=== PATIENT | male | born 1985 | race Caucasian/White ===

== ENCOUNTER 2017-08-24 11:33 | Inpatient (IN) | payer OTHER ==
[2017-08-24 13:29] VITALS: BMI 30.9
--- NOTE | 2017-08-24 14:05 | HP ---
COWS - Scale Resting Pulse: 0= [place] 80 or Below Sweatin= Chills/Flushing Restless Observation: 3= Extraneous Movement Pupil Size: 0= Normal to Room Light Bone or Joint Aches: 2= Severe Diffuse Aches Runny Nose/ Eye Tearin= Runny Nose/Eyes GI Upset > 30mins: 2= Nausea/Diarrhea Tremor Observation: 2= Slight Tremor Visible Yawning Observation: 2= >3x During Session Anxiety or Irritability: 2=Irritable/Anxious Goose Flesh Skin: 0=Smooth Skin COWS Score: 16 CIWA Score - CIWA Score Nausea/Vomitin-Mild Nausea/No Vomiting Muscle Tremors: 4-Moderate,w/Arms Extend Anxiety: 4-Mod. Anxious/Guarded Agitation: 4-Moderately Restless Paroxysmal Sweats: 1-Minimal Palms Moist Orientation: 0-Oriented Tacttile Disturbances: 1-Very Mild Itch/Numbness Auditory Disturbances: 0-None Visual Disturbances: 0-None Headache: 2-Mild CIWA-Ar Total Score: 17 Admission ROS S - HPI Chief Complaint: withdrawal sx Allergies/Adverse Reactions: Allergies Allergy/AdvReac Type Severity Reaction Status Date / Time No Known Allergies Allergy Verified 08/24/17 14:04 History of Present Illness: 31 years old male with long history of opiates xanax dependence has depression and anxiety is admitted to detox Exam Limitations: No Limitations - Ebola screening Have you traveled outside of the country in the last 21 days: No Have you had contact with anyone from an Ebola affected area: No Have you been sick,other than usual withdrawal symptoms: No Do you have a fever: No - Review of Systems Constitutional: Changes in sleep, Weight Stable EENT: reports: No Symptoms Reported Respiratory: reports: No Symptoms reported Cardiac: reports: No Symptoms Reported GI: reports: Diarrhea, Nausea, Poor Fluid Intake, Abdominal cramping : reports: No Symptoms Reported Musculoskeletal: reports: No Symptoms Reported Integumentary: reports: No Symptoms Reported Neuro: reports: Tremors Endocrine: reports: No Symptoms Reported Hematology: reports: No Symptoms Reported Psychiatric: reports: Judgement Intact, Orientated x3, Anxious, Depressed Other Systems: Reviewed and Negative Patient History - Patient Medical History Hx Anemia: No Hx Asthma: No Hx Chronic Obstructive Pulmonary Disease (COPD): No Hx Cancer: No Hx Cardiac Disorders: No Hx Hypertension: No Hx Hypercholesterolemia: No Hx Pacemaker: No HX Cerebrovascular Accident: No Hx Seizures: No Hx Dementia: No Hx Diabetes: No Hx Gastrointestinal Disorders: No Hx Liver Disease: No Hx Genitourinary Disorders: No Hx Sexually Transmitted Disorders: No Hx Renal Disease (ESRD): No Hx Thyroid Disease: No Hx Human Immunodeficiency Virus (HIV): No (NEGATIVE HX) Hx Hepatitis C: No Hx Depression: Yes Hx Suicide Attempt: No Hx Bipolar Disorder: No Hx Schizophrenia: No - Patient Surgical History Past Surgical History: No Hx Neurologic Surgery: No Hx Cataract Extraction: No Hx Cardiac Surgery: No Hx Lung Surgery: No Hx Breast Surgery: No Hx Breast Biopsy: No Hx Abdominal Surgery: No Hx Appendectomy: No Hx Cholecystectomy: No Hx Genitourinary Surgery: No Hx Orthopedic Surgery: No - PPD History Previous Implant?: Yes Documented Results: Negative w/proof Implanted On Prior R Admission?: Yes Date: 08/17/16 Results: 0 MM PPD to be Administered?: Yes - Smoking Cessation Smoking history: Former smoker Have you smoked in the past 12 months: No If you are a former smoker, when did you quit?: 12 MONTHS AGO Cigars Per Day: 0 Hx Chewing Tobacco Use: No Initiated information on smoking cessation: No - Substance & Tx. History Hx Alcohol Use: No Hx Substance Use: Yes Substance Use Type: Opiates, Tranquilizers - Substances Abused Heroin Route: Injection Frequency: Daily Family Disease History - Family Disease History Family History: Unremarkable Admission Physical Exam BHS - Vital Signs Vital Signs: Vital Signs - 24 hr 08/24/17 13:25 Temperature 98.9 F Pulse Rate 63 Respiratory 20 Rate Blood Pressure 115/79 - Physical General Appearance: Yes: Nourished, Appropriately Dressed, Tremorous, Irritable , Sweating, Anxious HEENTM: Yes: Hearing grossly Normal, Normal ENT Inspection, Normocephalic, Normal Voice Respiratory: Yes: Chest Non-Tender, Lungs Clear, Normal Breath Sounds, No Respiratory Distress, No Accessory Muscle Use Neck: Yes: Supple, Trachea in good position Breast: Yes: Breasts Symetrical Cardiology: Yes: Regular Rhythm, S1, S2, Bradycardia Abdominal: Yes: Non Tender, Soft, Increased Bowel Sounds Genitourinary: Yes: Within Normal Limits Back: Yes: Normal Inspection Musculoskeletal: Yes: full range of Motion, Gait Steady Extremities: Yes: Normal Range of Motion, Non-Tender, Tremors Neurological: Yes: Fully Oriented, Alert, Motor Strength 5/5, Normal Response, Depressed Affect Integumentary: Yes: Warm, Track Rodriguez Lymphatic: Yes: Within Normal Limits - Diagnostic (1) Anxiety and depression Current Visit: Yes Status: Suspected (2) HTN (hypertension) Current Visit: Yes Status: Chronic Qualifiers: Hypertension type: essential hypertension Qualified Code(s): I10 - Essential (primary) hypertension (3) Opioid dependence with withdrawal Current Visit: Yes Status: Acute (4) Sedative, hypnotic or anxiolytic dependence with withdrawal, uncomplicated Current Visit: Yes Status: Acute Cleared for Admission [facility] - Detox or Rehab [facility] Level of Care: Medically Managed Detox Regimen/Protocol: Methadone/Valium S Breath Alcohol Content Breath Alcohol Content: 0 Urine Drug Screen - Control Is Test Valid: Yes - Results Drug Screen Negative: No Urine Drug Screen Results: THC-Marijuana, OPI-Opiates, BAR-Barbiturates, BZO- Benzodiazepines, MTD-Methadone, TCA-Tricyclic Antidepress, OXY-Oxycodone
[2017-08-24] MEDS ORDERED: MAGNESIUM CITRATE 300 ML BOTTLE PO PRN (14:24)
[2017-08-24] MEDS ORDERED: MENTHOL/PHENOL 1 EACH UD MM PRN (14:24)
[2017-08-24] MEDS ORDERED: IBUPROFEN 400 MG TABLET (FP) PO PRN (14:24)
[2017-08-24] MEDS ORDERED: MAGNESIUM HYDROX 2400MG/30ML ORAL SUSPENSION 30 ML CUP PO PRN (14:24)
[2017-08-24] MEDS ORDERED: P-EPHED 60MG/TRIPROLIDI 2.5MG TABLET PO PRN (14:24)
[2017-08-24] MEDS ORDERED: guaiFENesin/D-METHORPHAN HB 10 ML UNIT-DOSE CUPS PO PRN (14:24)
[2017-08-24] MEDS ORDERED: LOPERAMIDE HCL 2 MG CAPSULE PO PRN (14:24)
[2017-08-24] MEDS ORDERED: ACETAMINOPHEN 325 MG TABLET (FP) PO PRN (14:24)
[2017-08-24] MEDS ORDERED: diazePAM 5 MG TABLET PO ONE (15:30)
[2017-08-24] MEDS ORDERED: METHADONE HCL 10 MG TABLET (FOR DETOX USE ONLY) PO ONE ×2 (15:35→23:00)
--- NOTE | 2017-08-24 16:57 | CONSULT ---
[facility] Psychiatric Consult - Data Date of interview: 08/24/17 Admission source: [facility] Identifying data: Another admission to [facility] for this 31 [facility] detox treatment on for heroin,marijuana and benzodiazepine (xanax) dependence.Patient is single without children,homeless,unemployed and supported on food stamps. Substance Abuse History: Discussed in this session.Mr Harp admits to continuous use of heroin,xanax and marihuana.Endorses 6-8 years of substance abuse. Details in current [facility] report : Smoking history: Former smoker. Have you smoked in the past 12 months: No. If you are a former smoker, when did you quit?: 12 MONTHS AGO. Cigars Per Day: 0. Hx Chewing Tobacco Use: No. Initiated information on smoking cessation: No. - Substance & Tx. History. Hx Alcohol Use: No. Hx Substance Use: Yes. Substance Use Type: Opiates, Tranquilizers. - Substances Abused. Heroin. Route: Injection. Frequency: Daily Medical History: Patient endorses good general health. Psychiatric History: Patient admits to a history of 2-3 psychiatric hospitalizations in [facility].Diagnosed with MDD and Anxiety Disorder.Mr Harp reports current outpatient psychiatric treatment at [facility] (Dr García) .Treated with prozac 40 mg/day + trazodone 100 mg/hs.Last taken on 08/23/17 as per self-report.Patient agrees to resume these drugs in his current hospital course.Denies history of suicide attempts. Physical/Sexual Abuse/Trauma History: Patient denies. Additional Comment: THC-Marijuana, OPI-Opiates, BAR-Barbiturates, BZO- Benzodiazepines, MTD-Methadone, TCA-Tricyclic Antidepressant, OXY- Oxycodone.Noted. Mental Status Exam - Mental Status Exam Alert and Oriented to: Time, Place, Person Cognitive Function: Good Patient Appearance: Well Groomed Mood: Nervous, Anxious, Hopeful Affect: Mood Congruent Patient Behavior: Fatigued, Appropriate, Cooperative Speech Pattern: Clear (more comfortable in frisian), Appropriate Voice Loudness: Normal Thought Process: Goal Oriented Thought Disorder: Not Present Hallucinations: Denies Suicidal Ideation: Denies Homicidal Ideation: Denies Insight/Judgement: Poor Sleep: Poorly, Difficulty falling asleep Appetite: Good Muscle strength/Tone: Normal Gait/Station: Normal Psychiatric Findings - Problem List ([place] 1, 2,3) (1) Opioid dependence with withdrawal Current Visit: Yes Status: Acute (2) Sedative, hypnotic or anxiolytic dependence with withdrawal, uncomplicated Current Visit: Yes Status: Acute (3) Cannabis dependence, uncomplicated Current Visit: Yes Status: Acute (4) Nicotine dependence Current Visit: Yes Status: Acute Qualifiers: Nicotine product type: cigarettes Substance use status: uncomplicated Qualified Code(s): F17.210 - Nicotine dependence, cigarettes, uncomplicated (5) Drug-induced mood disorder Current Visit: Yes Status: Acute (6) MDD (major depressive disorder) Current Visit: Yes Status: Chronic Comment: As per records and self- report.On medications. (7) Insomnia Current Visit: Yes Status: Acute - Initial Treatment Plan Initial Treatment Plan: Records are reviewed.Psychoeducation.Sleep hygiene.Detoxification in progress.Medications : prozac 40 mg po daily.Trazodone withdrawn until further observation.Pharmacy claims are reviewed.Noted claims for welbutrin XL 300 mg/day (not mentioned by patient) + prozac 40 mg/30 days at [facility] on 08/13/17.Side effects/benefits of prozac are discussed with the patient.He agrees with this careplan.Observation.
[2017-08-24] MEDS: diazePAM 5 MG TABLET PO SCH (22:17)
[2017-08-24] MEDS: THIAMINE HCL 100 MG TABLET (FP) PO SCH (22:17)
[2017-08-25] MEDS: diazePAM 5 MG TABLET PO SCH ×3 (05:51→22:05)
[2017-08-25] MEDS: diazePAM 5 MG TABLET PO PRN ×2 (07:41→17:57)
[2017-08-25] MEDS ORDERED: METHADONE HCL 10 MG TABLET (FOR DETOX USE ONLY) PO SCH (10:00)
[2017-08-25 10:02] LABS: URINE APPEARANCE CLEAR; URINE BILIRUBIN NEGATIVE (NEGATIVE); URINE BLOOD NEGATIVE (NEGATIVE); URINE COLOR YELLOW; URINE GLUCOSE (UA) NEGATIVE (NEGATIVE); URINE KETONE NEGATIVE (NEGATIVE); URINE LEUK ESTERASE NEGATIVE (NEGATIVE); URINE NITRITE NEGATIVE (NEGATIVE); URINE PROTEIN NEGATIVE (NEGATIVE)
[2017-08-25 10:04] LABS: HEMATOCRIT 41.4 % (35.4-49); HEMOGLOBIN 13.7 GM/dL (11.7-16.9); MCHC 33.1 g/dl (32.0-35.9); MEAN CELL VOLUME 87.6 fl (80-96); PLATELET COUNT 257 K/MM3 (134-434); RBC 4.73 M/mm3 (4.00-5.60); RDW 14.6 % (11.9-15.9); WHITE BLOOD COUNT 9.7 K/mm3 (4.0-10.0)
[2017-08-25 10:18] LABS: CHLORIDE 104 mmol/L (98-107); POTASSIUM 4.2 mmol/L (3.5-5.1); SODIUM 140 mmol/L (136-145)
[2017-08-25] MEDS: FLUoxetine HCL 20 MG CAPSULE (FP) PO SCH (10:22)
[2017-08-25] MEDS: PRENATAL VITAMINS W/ FOLIC ACID TABLET (FP) PO SCH (10:22)
[2017-08-25 10:27] LABS: ALBUMIN 4.4 g/dl (3.4-5.0); ALK PHOS 70 U/L (45-117); ANION GAP 10 (8-16); BILIRUBIN,TOTAL 0.7 mg/dL (0.2-1.0); BLOOD UREA NITROGEN 12 mg/dL (7-18); CALCIUM 8.5 mg/dL (8.5-10.1); CO2 26 mmol/L (21-32); GLUCOSE,RANDOM 101 mg/dL (74-106); SGOT/AST 13 U/L (15-37); SGPT/ALT 21 U/L (12-78); TOT PROT 7.7 g/dl (6.4-8.2)
--- NOTE | 2017-08-25 11:26 | PN ---
[facility] CIWA - CIWA Score Nausea/Vomitin-No Nausea/No Vomiting Muscle Tremors: 4-Moderate,w/Arms Extend Anxiety: 4-Mod. Anxious/Guarded Agitation: 4-Moderately Restless Paroxysmal Sweats: 1-Minimal Palms Moist Orientation: 0-Oriented Tacttile Disturbances: 3-Moderate Itch/Numb/Burn Auditory Disturbances: 0-None Visual Disturbances: 0-None Headache: 0-None Present CIWA-Ar Total Score: 16 BHS COWS - Scale Resting Pulse: 0= [place] 80 or Below Sweatin= Chills/Flushing Restless Observation: 3= Extraneous Movement Pupil Size: 0= Normal to Room Light Bone or Joint Aches: 4=Acute Joint/Muscle Pain Runny Nose/ Eye Tearin= Nasal Congestion GI Upset > 30mins: 1= Stomach Cramp Tremor Observation of Outstretched Hands: 2= Slight Tremor Visible Yawning Observation: 1= 1-2x During Session Anxiety or Irritability: 2=Irritable/Anxious Goose Flesh Skin: 0=Smooth Skin COWS Score: 15 S Progress Note (SOAP) Subjective: ANXIETY, SWEATS, IRRITABILITY,INTERMITTENT SLEEP. Objective: 08/25/17 11:25 Vital Signs Temperature 97.4 F L 08/25/17 10:17 Pulse Rate 65 08/25/17 10:17 Respiratory Rate 18 08/25/17 10:17 Blood Pressure 113/70 08/25/17 10:17 O2 Sat by Pulse Oximetry (%) Laboratory Last Values WBC 9.7 K/mm3 (4.0-10.0) 08/25/17 06:00 RBC 4.73 M/mm3 (4.00-5.60) 08/25/17 06:00 Hgb 13.7 GM/dL (11.7-16.9) 08/25/17 06:00 Hct 41.4 % (35.4-49) 08/25/17 06:00 MCV 87.6 fl (80-96) 08/25/17 06:00 MCH 29.0 pg (25.7-33.7) 08/25/17 06:00 MCHC 33.1 g/dl (32.0-35.9) 08/25/17 06:00 RDW 14.6 % (11.9-15.9) 08/25/17 06:00 Plt Count 257 K/MM3 (134-434) 08/25/17 06:00 MPV 10.0 fl (7.5-11.1) D 08/25/17 06:00 Sodium 140 mmol/L (136-145) 08/25/17 06:00 Potassium 4.2 mmol/L (3.5-5.1) 08/25/17 06:00 Chloride 104 mmol/L (98-107) 08/25/17 06:00 Carbon Dioxide 26 mmol/L (21-32) 08/25/17 06:00 Anion Gap 10 (8-16) 08/25/17 06:00 BUN 12 mg/dL (7-18) 08/25/17 06:00 Creatinine 1.0 mg/dL (0.7-1.3) D 08/25/17 06:00 Creat Clearance w eGFR > 60 (>60) 08/25/17 06:00 Random Glucose 101 mg/dL (74-106) D 08/25/17 06:00 Calcium 8.5 mg/dL (8.5-10.1) 08/25/17 06:00 Total Bilirubin 0.7 mg/dL (0.2-1.0) 08/25/17 06:00 AST 13 U/L (15-37) L D 08/25/17 06:00 ALT 21 U/L (12-78) D 08/25/17 06:00 Alkaline Phosphatase 70 U/L (45-117) D 08/25/17 06:00 Total Protein 7.7 g/dl (6.4-8.2) D 08/25/17 06:00 Albumin 4.4 g/dl (3.4-5.0) D 08/25/17 06:00 Urine Color Yellow 08/25/17 08:15 Urine Appearance Clear 08/25/17 08:15 Urine pH 5.0 (5.0-8.0) 08/25/17 08:15 Ur Specific [place] 1.023 (1.001-1.035) 08/25/17 08:15 Urine Protein Negative (NEGATIVE) 08/25/17 08:15 Urine Glucose (UA) Negative (NEGATIVE) 08/25/17 08:15 Urine Ketones Negative (NEGATIVE) 08/25/17 08:15 Urine Blood Negative (NEGATIVE) 08/25/17 08:15 Urine Nitrite Negative (NEGATIVE) 08/25/17 08:15 Urine Bilirubin Negative (NEGATIVE) 08/25/17 08:15 Urine Urobilinogen 2.0 mg/dL (0.2-1.0) 08/25/17 08:15 Ur Leukocyte Esterase Negative (NEGATIVE) 08/25/17 08:15 Assessment: 08/25/17 11:26 WITHDRAWAL SX Plan: CONTINUE DETOX
--- NOTE | 2017-08-25 12:14 | EKG ---
Test Reason : Blood Pressure : / mmHG Vent. Rate : 056 BPM Atrial Rate : 056 BPM P-R Int : 142 ms QRS Dur : 086 ms QT Int : 402 ms P-R-T Axes : 042 059 046 degrees QTc Int : 387 ms SINUS BRADYCARDIA OTHERWISE NORMAL ECG WHEN COMPARED WITH ECG OF 16-AUG-2016 01:14, VENT. RATE HAS DECREASED BY 32 BPM Confirmed by MD JULIETH, JOSE ([id number]) on 08/25/2017 12:14:31 PM Referred By: Confirmed By:JOSE CLANCY MD
[2017-08-25] MEDS ORDERED: CYCLOBENZAPRINE HCL 10 MG TABLET (FP) PO PRN (12:54)
[2017-08-25] MEDS: MAG HYDROX/AL HYDROX/SIMETH 30 ML UNIT-DOSE CUP PO PRN ×2 (13:18→18:54)
[2017-08-25] MEDS: THIAMINE HCL 100 MG TABLET (FP) PO SCH (22:05)
[2017-08-26] MEDS ORDERED: diazePAM 5 MG TABLET PO SCH (10:00)
[2017-08-26] MEDS ORDERED: METHADONE HCL 5 MG TABLET (FOR DETOX USE ONLY) PO SCH (10:00)
[2017-08-26] MEDS: FLUoxetine HCL 20 MG CAPSULE (FP) PO SCH (10:31)
[2017-08-26] MEDS: PRENATAL VITAMINS W/ FOLIC ACID TABLET (FP) PO SCH (10:31)
--- NOTE | 2017-08-26 10:38 | PN ---
Psychiatric Progress Note Vital Signs: Vital Signs Period Temp Pulse Resp BP Sys/Jones Pulse Ox Last 24 Hr 97.1 F-97.8 F 56-63 18-18 99-108/66-71 Date of Session: 08/26/17 Chief Complaint:: " I cannot sleep at night.I need my trazodone." HPI: 31 y/o male,currently undergoing detoxification treatment for heroin,cannabis and benzodiazepine dependence.Uneventful hospital course except for complaint of chronic insomnia. ROS: Unremarkable. Current Medications: Active Medications Generic Name Dose Route Start Last Admin Trade Name Freq PRN Reason Stop Dose Admin Acetaminophen 650 mg 08/24/17 14:24 08/25/17 08:17 Tylenol - PO 650 mg Q4H PRN Administration FEVER Al Hydroxide/Mg Hydroxide 30 ml 08/24/17 14:24 08/25/17 18:54 Mylanta Oral Suspension - PO 30 ml Q6H PRN Administration DYSPEPSIA Cyclobenzaprine HCl 10 mg 08/25/17 12:54 Flexeril - PO TID PRN MUSCLE SPASMS Diazepam 5 mg 08/26/17 10:00 08/26/17 10:31 Valium - PO 08/27/17 22:01 5 mg BID JANA Administration Diazepam 5 mg 08/28/17 10:00 Valium - PO 08/28/17 10:01 DAILY JANA Diazepam 10 mg 08/24/17 14:23 08/25/17 17:57 Valium - PO 08/27/17 14:23 10 mg Q4H PRN Administration WITHDRAWAL(CONT SUBST) Eucalyptus/Menthol/Phenol/Sorbitol 1 each 08/24/17 14:24 Cepastat Lozenge - MM Q4H PRN SORE THROAT Fluoxetine HCl 40 mg 08/25/17 10:00 08/26/17 10:31 Prozac - PO 40 mg DAILY JANA Administration Guaifenesin 10 ml 08/24/17 14:24 Robitussin Dm - PO Q6H PRN COUGH Ibuprofen 400 mg 08/24/17 14:24 08/25/17 17:57 Motrin - PO 400 mg Q6H PRN Administration PAIN LEVEL 4-6 Loperamide HCl 4 mg 08/24/17 14:24 Imodium - PO Q6H PRN DIARRHEA Magnesium Citrate 300 ml 08/24/17 14:24 Citroma - PO Q48H PRN CONSTIPATION Magnesium Hydroxide 30 ml 08/24/17 14:24 Milk Of Magnesia - PO DAILY PRN CONSTIPATION Methadone HCl 10 mg 08/28/17 10:00 Dolophine - PO 08/28/17 10:01 DAILY JANA Methadone HCl 15 mg 08/26/17 10:00 08/26/17 10:31 Dolophine - PO 08/27/17 10:01 15 mg DAILY JANA Administration Methadone HCl 5 mg 08/29/17 06:00 Dolophine - PO 08/29/17 06:01 DAILY@0600 [facility] Multivit/Folic Acid/Iron 1 tab 08/25/17 10:00 08/26/17 10:31 Vitamins (Sjr) - PO 1 tab DAILY JANA Administration Pseudoephedrine/Triprolidine 1 combo 08/24/17 14:24 Actifed - PO TID PRN NASAL CONGESTION Thiamine HCl 100 mg 08/24/17 22:00 08/25/17 22:05 Vitamin B1 - PO 100 mg HS JANA Administration Trazodone HCl 100 mg 08/26/17 22:00 Desyrel - PO HS [facility] Medication(s) Change(s): Trazodone 100 mg po hs.Added to the regimen.Side effects/benefits discussed with patient.Made aware of the risk of priapism and advised to stop taking this medication / seek immediate medical attention if occurrence of erectile phenomena (painful + prolonged erection).Mr Harp endorses trazodone as always well tolerated (several months of utilization) and effective in the management of his sleep difficulties.This is one of his medications prescribed by his OPD care provider.Patient is satisfied with this intervention. Current Side Effect: No Lab tests ordered: No Lab tests reviewed: Yes Provider note:: Asked by LYNDA Torres to address patient's complaint of insomnia and his request for trazodone.Met with patient.Complaint validated.Initial treatment plan revisited.Mr Harp has continued to experience sleep difficulties in spite of observance of sleep hygiene.Treated with trazodone as an outpatient.Confirmed.Hospital course is unremarkable otherwise.Baseline mental status.Trazodone is re-instated in the current regime of care. Total face to face time:: 25 Mental Status Exam - Mental Status Exam Alert and Oriented to: Time, Place, Person Cognitive Function: Good Patient Appearance: Well Groomed Mood: Nervous, Anxious, Hopeful Affect: Appropriate, Normal Range Patient Behavior: Fatigued, Appropriate, Cooperative Speech Pattern: Clear, Appropriate Voice Loudness: Normal Thought Process: Goal Oriented Thought Disorder: Not Present Hallucinations: Denies Suicidal Ideation: Denies Homicidal Ideation: Denies Insight/Judgement: Fair Sleep: Poorly, Difficulty falling asleep Appetite: Good Muscle strength/Tone: Normal Gait/Station: Normal Psychiatric Treatment Plan - Problem List (1) Opioid dependence with withdrawal Current Visit: Yes (2) Sedative, hypnotic or anxiolytic dependence with withdrawal, uncomplicated Current Visit: Yes (3) Cannabis dependence, uncomplicated Current Visit: Yes (4) Nicotine dependence Current Visit: Yes Qualifiers: Nicotine product type: cigarettes Substance use status: in withdrawal Qualified Code(s): F17.213 - Nicotine dependence, cigarettes, with withdrawal (5) Drug-induced mood disorder Current Visit: Yes (6) MDD (major depressive disorder) Current Visit: Yes Comment: As per records and self-report.On medications. (7) Insomnia Current Visit: Yes
[2017-08-26 10:50] VITALS: BP 123/76; PULSE 75; TEMP 98.6
--- NOTE | 2017-08-26 11:58 | PN ---
S CIWA - CIWA Score Nausea/Vomitin-No Nausea/No Vomiting Muscle Tremors: 3 Anxiety: 5 Agitation: 4-Moderately Restless Paroxysmal Sweats: No Perspiration Orientation: 0-Oriented Tacttile Disturbances: 2-Mild Itch/Numbness/Burn Auditory Disturbances: 0-None Visual Disturbances: 2-Mild Sensitivity Headache: 0-None Present CIWA-Ar Total Score: 16 BHS COWS - Scale Resting Pulse: 0= [place] 80 or Below Sweatin= Chills/Flushing Restless Observation: 1= Difficult to Sit Still Pupil Size: 0= Normal to Room Light Bone or Joint Aches: 2= Severe Diffuse Aches Runny Nose/ Eye Tearin= None GI Upset > 30mins: 1= Stomach Cramp Tremor Observation of Outstretched Hands: 2= Slight Tremor Visible Yawning Observation: 1= 1-2x During Session Anxiety or Irritability: 2=Irritable/Anxious Goose Flesh Skin: 3=Piloerection COWS Score: 13 BHS Progress Note (SOAP) Subjective: Stomach Cramping, Anxious, Tremors, Body Aches, Interrupted Sleep. Objective: PATIENT A & O X 3, OBSERVED AMBULATING ON UNIT. NO ACUTE DISTRESS. 08/26/17 11:57 Vital Signs Temperature 98.6 F 08/26/17 10:49 Pulse Rate 75 08/26/17 10:49 Respiratory Rate 18 08/26/17 10:49 Blood Pressure 123/76 08/26/17 10:49 O2 Sat by Pulse Oximetry (%) Laboratory Tests 08/25/17 08/25/17 08/25/17 06:00 06:00 06:00 WBC 9.7 RBC 4.73 Hgb 13.7 Hct 41.4 MCV 87.6 MCH 29.0 MCHC 33.1 RDW 14.6 Plt Count 257 MPV 10.0 D Sodium 140 Potassium 4.2 Chloride 104 Carbon Dioxide 26 Anion Gap 10 BUN 12 Creatinine 1.0 D Creat Clearance w eGFR > 60 Random Glucose 101 D Calcium 8.5 Total Bilirubin 0.7 AST 13 L D ALT 21 D Alkaline Phosphatase 70 D Total Protein 7.7 D Albumin 4.4 D Urine Color Urine Appearance Urine pH Ur Specific [place] Urine Protein Urine Glucose (UA) Urine Ketones Urine Blood Urine Nitrite Urine Bilirubin Urine Urobilinogen Ur Leukocyte Esterase RPR Titer Nonreactive 08/25/17 08:15 WBC RBC Hgb Hct MCV MCH MCHC RDW Plt Count MPV Sodium Potassium Chloride Carbon Dioxide Anion Gap BUN Creatinine Creat Clearance w eGFR Random Glucose Calcium Total Bilirubin AST ALT Alkaline Phosphatase Total Protein Albumin Urine Color Yellow Urine Appearance Clear Urine pH 5.0 Ur Specific [place] 1.023 Urine Protein Negative Urine Glucose (UA) Negative Urine Ketones Negative Urine Blood Negative Urine Nitrite Negative Urine Bilirubin Negative Urine Urobilinogen 2.0 Ur Leukocyte Esterase Negative RPR Titer LABS NOTED. Assessment: 08/26/17 11:57 WITHDRAWAL SYMPTOMS. Plan: CONTINUE DETOX.
--- NOTE | 2017-08-26 11:59 | DS ---
[facility] Detox Discharge Summary Admission Date: 08/24/17 Discharge Date: 08/26/17 - History Present History: Cannabis Dependence, Opioid Dependence, Sedative Dependence Additional Comments: PATIENT DOES NOT WISH TO STAY TO COMPLETE DETOX REGIMEN. RISKS OF LEAVING DETOX UNIT AGAINST MEDICAL ADVICE AND PRIOR TO COMPLETION OF DETOX REGIMEN EXPLAINED TO PATIENT. PATIENT ADVISED TO GO IMMEDIATELY TO NEAREST ER SHOULD ANY INTOLERABLE DETOX SYMPTOMS DEVELOP AT ANY TIME. PATIENT LEFT DETOX UNIT IN STABLE MEDICAL CONDITION. Pertinent Past History: HTN, Depression, Insomnia. - Physical Exam Results Vital Signs: Vital Signs Temperature 98.6 F 08/26/17 10:49 Pulse Rate 75 08/26/17 10:49 Respiratory Rate 18 08/26/17 10:49 Blood Pressure 123/76 08/26/17 10:49 O2 Sat by Pulse Oximetry (%) Pertinent Admission Physical Exam Findings: WITHDRAWAL SYMPTOMS. Laboratory Tests 08/25/17 08/25/17 08/25/17 06:00 06:00 06:00 WBC 9.7 RBC 4.73 Hgb 13.7 Hct 41.4 MCV 87.6 MCH 29.0 MCHC 33.1 RDW 14.6 Plt Count 257 MPV 10.0 D Sodium 140 Potassium 4.2 Chloride 104 Carbon Dioxide 26 Anion Gap 10 BUN 12 Creatinine 1.0 D Creat Clearance w eGFR > 60 Random Glucose 101 D Calcium 8.5 Total Bilirubin 0.7 AST 13 L D ALT 21 D Alkaline Phosphatase 70 D Total Protein 7.7 D Albumin 4.4 D Urine Color Urine Appearance Urine pH Ur Specific [place] Urine Protein Urine Glucose (UA) Urine Ketones Urine Blood Urine Nitrite Urine Bilirubin Urine Urobilinogen Ur Leukocyte Esterase RPR Titer Nonreactive 08/25/17 08:15 WBC RBC Hgb Hct MCV MCH MCHC RDW Plt Count MPV Sodium Potassium Chloride Carbon Dioxide Anion Gap BUN Creatinine Creat Clearance w eGFR Random Glucose Calcium Total Bilirubin AST ALT Alkaline Phosphatase Total Protein Albumin Urine Color Yellow Urine Appearance Clear Urine pH 5.0 Ur Specific [place] 1.023 Urine Protein Negative Urine Glucose (UA) Negative Urine Ketones Negative Urine Blood Negative Urine Nitrite Negative Urine Bilirubin Negative Urine Urobilinogen 2.0 Ur Leukocyte Esterase Negative RPR Titer LABS NOTED. - Treatment Hospital Course: Detoxed Safely - Medication Discharge Medications: Ambulatory Orders Fluoxetine HCl [Prozac -] 40 mg PO DAILY #30 capsule 08/20/16 Trazodone HCl 100 mg PO HS 08/24/17 - Diagnosis (1) Nicotine dependence Current Visit: Yes Status: Acute Qualifiers: Nicotine product type: cigarettes Substance use status: in withdrawal Qualified Code(s): F17.213 - Nicotine dependence, cigarettes, with withdrawal (2) Opioid dependence with withdrawal Current Visit: Yes Status: Acute (3) Sedative, hypnotic or anxiolytic dependence with withdrawal, uncomplicated Current Visit: Yes Status: Acute (4) HTN (hypertension) Current Visit: Yes Status: Chronic Qualifiers: Hypertension type: essential hypertension Qualified Code(s): I10 - Essential (primary) hypertension (5) MDD (major depressive disorder) Current Visit: Yes Status: Chronic Qualifiers: Major depression recurrence: recurrent Active/Remission status: remission status unspecified Qualified Code(s): F33.9 - Major depressive disorder, recurrent, unspecified (6) Cannabis dependence, uncomplicated Current Visit: Yes Status: Acute (7) Drug-induced mood disorder Current Visit: Yes Status: Acute (8) Insomnia Current Visit: Yes Status: Acute Qualifiers: Insomnia type: unspecified Qualified Code(s): G47.00 - Insomnia, unspecified - AMA Did Patient Leave Against Medical Advice: Yes (PATIENT DID NOT WISH TO STAY TO COMPLETE DETOX REGIMEN.)
[2017-08-26] MEDS ORDERED: traZODone HCL 100 MG TABLET (FP) PO SCH (22:00)
[2017-08-28] MEDS ORDERED: METHADONE HCL 10 MG TABLET (FOR DETOX USE ONLY) PO SCH (10:00)
[2017-08-28] MEDS ORDERED: diazePAM 5 MG TABLET PO SCH (10:00)
[2017-08-29] MEDS ORDERED: METHADONE HCL 5 MG TABLET (FOR DETOX USE ONLY) PO SCH (06:00)
== END 2017-08-26 11:30 | disposition left against medical advice (07) | DRG 770 ==
LOC: YASAS 11:33 → Y3N 14:53
PROVIDERS: ADMIT Internal Medicine; ATTEND Internal Medicine
PROC: HZ2ZZZZ Detoxification Services for Substance Abuse Treatment (ICD-10-PCS; principal; 2017-08-24)
DX: F11.23 Opioid dependence with withdrawal (principal); F13.230 Sedative, hypnotic or anxiolytic dependence with withdrawal, uncomplicated; F12.20 Cannabis dependence, uncomplicated; F17.213 Nicotine dependence, cigarettes, with withdrawal; F33.9 Major depressive disorder, recurrent, unspecified; F19.24 Other psychoactive substance dependence with psychoactive substance-induced mood disorder; I10 Essential (primary) hypertension; G47.00 Insomnia, unspecified
CPT/HCPCS: 36415; 80053; 81003; 85027; 86593; 93005; 93010

== ENCOUNTER 2021-06-26 11:55 | Inpatient (IN) | payer OTHER ==
[2021-06-26] MEDS ORDERED: MAGNESIUM CITRATE 300 ML BOTTLE PO PRN (12:43)
[2021-06-26] MEDS ORDERED: BISMUTH SUBSALICYLATE 262 MG/15 ML BTL PO PRN (12:43)
[2021-06-26] MEDS ORDERED: ONDANSETRON *ODT* 4 MG TABLET SL PRN (12:43)
[2021-06-26] MEDS ORDERED: MAG HYDROX/AL HYDROX/SIMETH 30 ML UNIT-DOSE CUP PO PRN (12:43)
[2021-06-26] MEDS ORDERED: IBUPROFEN 400 MG TABLET (FP) PO PRN (12:43)
[2021-06-26] MEDS ORDERED: ACETAMINOPHEN 325 MG TABLET (FP) PO PRN ×2 (12:43)
[2021-06-26] MEDS ORDERED: MAGNESIUM HYDROX 2400MG/30ML ORAL SUSPENSION 30 ML CUP PO PRN (12:43)
[2021-06-26] MEDS ORDERED: MENTHOL/PHENOL 1 EACH UD MM PRN (12:43)
[2021-06-26 13:53] VITALS: BMI 27.6
[2021-06-26 15:22] LABS: CALCIUM 8.7 mg/dL (8.5-10.1)
[2021-06-26 15:23] LABS: ALBUMIN 3.9 g/dl (3.4-5.0); BLOOD UREA NITROGEN 20.8 mg/dL (7-18)
[2021-06-26 15:23] LABS: HEMATOCRIT 38.9 % (35.4-49); MCH 29.2 pg (25.7-33.7); MCHC 33.4 g/dl (32.0-35.9); MEAN CELL VOLUME 87.6 fl (80-96); MEAN PLT VOLUME 8.9 fl (7.5-11.1); PLATELET COUNT 263 10^3/uL (134-434); RBC 4.45 M/mm3 (4.00-5.60); RDW 13.6 % (11.9-15.9); WHITE BLOOD COUNT 7.6 K/mm3 (4.0-10.0)
[2021-06-26 15:26] LABS: CREATININE 0.9 mg/dL (0.55-1.3)
[2021-06-26 15:27] LABS: BILIRUBIN,TOTAL 0.9 mg/dL (0.2-1)
[2021-06-26 15:28] LABS: TOT PROT 7.1 g/dl (6.4-8.2)
[2021-06-26] MEDS: hydrOXYzine PAMOATE 25 MG CAPSULE (FP) PO SCH ×3 (18:14→22:39)
[2021-06-26] MEDS: diazePAM 5 MG TABLET PO SCH ×2 (18:14→22:38)
[2021-06-26] MEDS: PRENATAL VITAMINS W/ FOLIC ACID TABLET (FP) PO SCH (18:14)
[2021-06-26] MEDS: MELATONIN 5 MG TABLETS PO SCH (22:39)
[2021-06-26] MEDS: THIAMINE HCL 100 MG TABLET (FP) PO SCH (22:39)
[2021-06-27] MEDS: diazePAM 5 MG TABLET PO SCH ×4 (08:03→22:22)
[2021-06-27] MEDS: hydrOXYzine PAMOATE 25 MG CAPSULE (FP) PO SCH ×5 (08:03→22:22)
[2021-06-27] MEDS: METHOCARBAMOL 500 MG TABLET PO PRN (10:20)
[2021-06-27] MEDS: PRENATAL VITAMINS W/ FOLIC ACID TABLET (FP) PO SCH (10:21)
[2021-06-27] MEDS ORDERED: methaDONE HCL 10 MG TABLET PO ONE (13:01)
[2021-06-27] MEDS ORDERED: methaDONE HCL 10 MG TABLET ONE (13:22)
[2021-06-27] MEDS ORDERED: methaDONE HCL 40 MG DISPERSABLE TABLET ONE (13:23)
[2021-06-27 17:18] LABS: HIV INTERPRETATION NEGATIVE (NEGATIVE)
[2021-06-27] MEDS: THIAMINE HCL 100 MG TABLET (FP) PO SCH (22:22)
[2021-06-27] MEDS: MELATONIN 5 MG TABLETS PO SCH (22:22)
[2021-06-28] MEDS ORDERED: methaDONE HCL 10 MG TABLET ONE (04:55)
[2021-06-28] MEDS ORDERED: methaDONE HCL 40 MG DISPERSABLE TABLET ONE (04:55)
[2021-06-28] MEDS ORDERED: methaDONE HCL 10 MG TABLET PO SCH (06:00)
[2021-06-28] MEDS: hydrOXYzine PAMOATE 25 MG CAPSULE (FP) PO SCH ×5 (06:37→22:12)
[2021-06-28] MEDS: diazePAM 5 MG TABLET PO SCH ×3 (06:37→22:13)
[2021-06-28] MEDS: METHOCARBAMOL 500 MG TABLET PO PRN (10:28)
[2021-06-28] MEDS: PRENATAL VITAMINS W/ FOLIC ACID TABLET (FP) PO SCH (10:28)
[2021-06-28] MEDS: diazePAM 5 MG TABLET PO PRN ×2 (10:28→19:01)
[2021-06-28] MEDS: MELATONIN 5 MG TABLETS PO SCH (22:12)
[2021-06-28] MEDS: THIAMINE HCL 100 MG TABLET (FP) PO SCH (22:12)
[2021-06-29] MEDS ORDERED: methaDONE HCL 10 MG TABLET ONE (05:43)
[2021-06-29] MEDS ORDERED: methaDONE HCL 40 MG DISPERSABLE TABLET ONE (05:44)
[2021-06-29] MEDS: diazePAM 5 MG TABLET PO SCH ×2 (06:33→17:40)
[2021-06-29] MEDS: hydrOXYzine PAMOATE 25 MG CAPSULE (FP) PO SCH ×5 (06:34→22:31)
[2021-06-29] MEDS: PRENATAL VITAMINS W/ FOLIC ACID TABLET (FP) PO SCH (10:34)
[2021-06-29] MEDS: diazePAM 5 MG TABLET PO PRN (10:35)
[2021-06-29] MEDS: METHOCARBAMOL 500 MG TABLET PO PRN (10:35)
[2021-06-29] MEDS: THIAMINE HCL 100 MG TABLET (FP) PO SCH (22:31)
[2021-06-29] MEDS: MELATONIN 5 MG TABLETS PO SCH (22:31)
[2021-06-30] MEDS ORDERED: methaDONE HCL 10 MG TABLET ONE (04:28)
[2021-06-30] MEDS ORDERED: methaDONE HCL 40 MG DISPERSABLE TABLET ONE (04:28)
[2021-06-30] MEDS ORDERED: diazePAM 5 MG TABLET PO ONE (06:00)
[2021-06-30] MEDS: hydrOXYzine PAMOATE 25 MG CAPSULE (FP) PO SCH ×5 (06:33→22:10)
[2021-06-30] MEDS: PRENATAL VITAMINS W/ FOLIC ACID TABLET (FP) PO SCH (10:32)
[2021-06-30] MEDS: MELATONIN 5 MG TABLETS PO SCH (22:10)
[2021-06-30] MEDS: THIAMINE HCL 100 MG TABLET (FP) PO SCH (22:10)
[2021-07-01] MEDS ORDERED: methaDONE HCL 40 MG DISPERSABLE TABLET ONE (04:00)
[2021-07-01] MEDS ORDERED: methaDONE HCL 10 MG TABLET ONE (04:00)
[2021-07-01] MEDS: hydrOXYzine PAMOATE 25 MG CAPSULE (FP) PO SCH ×5 (06:47→22:00)
[2021-07-01] MEDS: PRENATAL VITAMINS W/ FOLIC ACID TABLET (FP) PO SCH (09:59)
[2021-07-01] MEDS: METHOCARBAMOL 500 MG TABLET PO PRN (17:41)
[2021-07-01] MEDS: THIAMINE HCL 100 MG TABLET (FP) PO SCH (22:00)
[2021-07-01] MEDS: MELATONIN 5 MG TABLETS PO SCH (22:01)
[2021-07-02] MEDS ORDERED: methaDONE HCL 10 MG TABLET ONE (04:12)
[2021-07-02] MEDS ORDERED: methaDONE HCL 40 MG DISPERSABLE TABLET ONE (04:12)
[2021-07-02] MEDS: hydrOXYzine PAMOATE 25 MG CAPSULE (FP) PO SCH ×2 (06:31→10:38)
[2021-07-02] MEDS: PRENATAL VITAMINS W/ FOLIC ACID TABLET (FP) PO SCH (10:38)
[2021-07-02] MEDS: THIAMINE HCL 100 MG TABLET (FP) PO SCH (22:09)
[2021-07-02] MEDS: MELATONIN 5 MG TABLETS PO SCH (22:09)
[2021-07-03] MEDS ORDERED: methaDONE HCL 10 MG TABLET ONE (04:17)
[2021-07-03] MEDS ORDERED: methaDONE HCL 40 MG DISPERSABLE TABLET ONE (04:17)
[2021-07-03] MEDS: PRENATAL VITAMINS W/ FOLIC ACID TABLET (FP) PO SCH (10:20)
[2021-07-03] MEDS: MELATONIN 5 MG TABLETS PO SCH (22:22)
[2021-07-03] MEDS: THIAMINE HCL 100 MG TABLET (FP) PO SCH (22:23)
[2021-07-04] MEDS ORDERED: methaDONE HCL 10 MG TABLET ONE (04:17)
[2021-07-04] MEDS ORDERED: methaDONE HCL 40 MG DISPERSABLE TABLET ONE (04:17)
[2021-07-04] MEDS: PRENATAL VITAMINS W/ FOLIC ACID TABLET (FP) PO SCH (11:22)
[2021-07-04 17:11] VITALS: BP 131/84; PULSE 69; TEMP 97.1
== END 2021-07-04 19:20 | disposition home or self-care (01) | DRG 773 ==
LOC: YASAS 11:55 → Y6N 15:56
PROVIDERS: ADMIT Allergy & Immunology; ATTEND Allergy & Immunology
PROC: HZ2ZZZZ Detoxification Services for Substance Abuse Treatment (ICD-10-PCS; principal; 2021-06-26)
DX: F11.23 Opioid dependence with withdrawal (principal); F13.230 Sedative, hypnotic or anxiolytic dependence with withdrawal, uncomplicated; F12.20 Cannabis dependence, uncomplicated; F19.24 Other psychoactive substance dependence with psychoactive substance-induced mood disorder; U07.1 COVID-19; G47.00 Insomnia, unspecified; Z87.891 Personal history of nicotine dependence; Z56.0 Unemployment, unspecified; Z59.00 Homelessness unspecified
CPT/HCPCS: 36415; 80053; 82962; 85027; 86780; 87389; C9803; U0003; U0005

== ENCOUNTER 2021-08-09 17:41 | Inpatient (IN) | payer OTHER ==
[2021-08-09 19:11] VITALS: BMI 26.1
[2021-08-09] MEDS ORDERED: BISMUTH SUBSALICYLATE 524 MG/30 ML PO PRN (22:42)
[2021-08-09] MEDS ORDERED: MAGNESIUM CITRATE 300 ML BOTTLE PO PRN (22:42)
[2021-08-09] MEDS ORDERED: MAGNESIUM HYDROX 2400MG/30ML ORAL SUSPENSION 30 ML CUP PO PRN (22:42)
[2021-08-09] MEDS ORDERED: LOPERAMIDE HCL 2 MG CAPSULE PO PRN (22:42)
[2021-08-09] MEDS ORDERED: ACETAMINOPHEN 325 MG TABLET (FP) PO PRN ×2 (22:42)
[2021-08-09] MEDS ORDERED: ONDANSETRON *ODT* 4 MG TABLET SL PRN (22:42)
[2021-08-09] MEDS ORDERED: IBUPROFEN 400 MG TABLET (FP) PO PRN (22:42)
[2021-08-09] MEDS ORDERED: MENTHOL/PHENOL 1 EACH UD MM PRN (22:42)
[2021-08-09] MEDS ORDERED: MAG HYDROX/AL HYDROX/SIMETH 30 ML UNIT-DOSE CUP PO PRN (22:42)
[2021-08-10] MEDS ORDERED: diazePAM 5 MG TABLET ONE (00:23)
[2021-08-10] MEDS: diazePAM 5 MG TABLET PO SCH ×5 (00:26→22:31)
[2021-08-10] MEDS: PRENATAL VITAMINS W/ FOLIC ACID TABLET (FP) PO SCH (10:18)
[2021-08-10] MEDS: METHOCARBAMOL 500 MG TABLET PO PRN ×2 (10:19→22:32)
[2021-08-10] MEDS: FLUoxetine HCL 10 MG CAPSULE PO SCH (11:36)
[2021-08-10] MEDS ORDERED: FLU VACC QS2021-22(6MOS UP)/PF 60 MCG/0.5 ML SYRINGE IM ONE (13:00)
[2021-08-10] MEDS: methaDONE HCL 10 MG TABLET PO SCH (13:21)
[2021-08-10] MEDS ORDERED: MELATONIN 5 MG TABLETS PO SCH (22:00)
[2021-08-10] MEDS: risperiDONE 2 MG TABLET PO SCH (22:28)
[2021-08-10] MEDS: THIAMINE HCL 100 MG TABLET (FP) PO SCH (22:32)
[2021-08-11] MEDS: methaDONE HCL 10 MG TABLET PO SCH (06:50)
[2021-08-11] MEDS: diazePAM 5 MG TABLET PO SCH ×3 (06:50→22:08)
[2021-08-11] MEDS: METHOCARBAMOL 500 MG TABLET PO PRN (07:06)
[2021-08-11] MEDS: FLUoxetine HCL 10 MG CAPSULE PO SCH (10:11)
[2021-08-11] MEDS: PRENATAL VITAMINS W/ FOLIC ACID TABLET (FP) PO SCH (10:11)
[2021-08-11] MEDS: diazePAM 5 MG TABLET PO PRN ×2 (10:12→20:31)
[2021-08-11 12:38] LABS: HEMATOCRIT 41.7 % (35.4-49); HEMOGLOBIN 13.7 GM/dL (11.7-16.9); MCH 28.8 pg (25.7-33.7); MEAN CELL VOLUME 87.5 fl (80-96); MEAN PLT VOLUME 9.2 fl (7.5-11.1); PLATELET COUNT 201 10^3/uL (134-434); RBC 4.76 M/mm3 (4.00-5.60); RDW 13.2 % (11.9-15.9); WHITE BLOOD COUNT 6.2 K/mm3 (4.0-10.0)
[2021-08-11 12:48] LABS: CALCIUM 9.7 mg/dL (8.5-10.1)
[2021-08-11 12:49] LABS: BLOOD UREA NITROGEN 19.5 mg/dL (7-18)
[2021-08-11 12:51] LABS: CREATININE 0.8 mg/dL (0.55-1.3)
[2021-08-11 12:53] LABS: BILIRUBIN,TOTAL 0.6 mg/dL (0.2-1); TOT PROT 7.4 g/dl (6.4-8.2)
[2021-08-11 14:06] LABS: SARS-CoV-2 NAA Not Detected (Not Detected)
[2021-08-11] MEDS: THIAMINE HCL 100 MG TABLET (FP) PO SCH (22:09)
[2021-08-11] MEDS: risperiDONE 2 MG TABLET PO SCH (22:09)
[2021-08-12] MEDS: diazePAM 5 MG TABLET PO SCH ×2 (06:51→17:36)
[2021-08-12] MEDS: PRENATAL VITAMINS W/ FOLIC ACID TABLET (FP) PO SCH (10:17)
[2021-08-12] MEDS: FLUoxetine HCL 10 MG CAPSULE PO SCH (10:17)
[2021-08-12] MEDS: METHOCARBAMOL 500 MG TABLET PO PRN ×2 (12:40→18:30)
[2021-08-12] MEDS ORDERED: methaDONE HCL 40 MG DISPERSABLE TABLET PO ONE (13:03)
[2021-08-12 17:16] LABS: HIV INTERPRETATION NEGATIVE (NEGATIVE)
[2021-08-12] MEDS: diazePAM 5 MG TABLET PO PRN (20:04)
[2021-08-12] MEDS: THIAMINE HCL 100 MG TABLET (FP) PO SCH (22:05)
[2021-08-12] MEDS: risperiDONE 2 MG TABLET PO SCH (22:06)
[2021-08-13] MEDS ORDERED: methaDONE HCL 10 MG TABLET ONE (04:00)
[2021-08-13] MEDS ORDERED: methaDONE HCL 40 MG DISPERSABLE TABLET ONE (04:01)
[2021-08-13] MEDS ORDERED: diazePAM 5 MG TABLET PO ONE (06:00)
[2021-08-13] MEDS ORDERED: methaDONE 40 MG, methaDONE 10 MG PO SCH (06:00)
[2021-08-13] MEDS ORDERED: methaDONE HCL 10 MG TABLET PO SCH (06:00)
[2021-08-13 09:08] VITALS: BP 126/82; PULSE 94; TEMP 97.3
== END 2021-08-13 09:12 | disposition home or self-care (01) | DRG 773 ==
LOC: YASAS 17:41 → Y3N 23:32
PROVIDERS: ADMIT Allergy & Immunology; ATTEND Allergy & Immunology
PROC: HZ2ZZZZ Detoxification Services for Substance Abuse Treatment (ICD-10-PCS; principal; 2021-08-09)
DX: F13.230 Sedative, hypnotic or anxiolytic dependence with withdrawal, uncomplicated (principal); F11.20 Opioid dependence, uncomplicated; F12.20 Cannabis dependence, uncomplicated; F17.210 Nicotine dependence, cigarettes, uncomplicated; F19.24 Other psychoactive substance dependence with psychoactive substance-induced mood disorder; F32.A Depression, unspecified; F41.9 Anxiety disorder, unspecified; G47.00 Insomnia, unspecified; R79.89 Other specified abnormal findings of blood chemistry; Z56.0 Unemployment, unspecified; Z59.00 Homelessness unspecified
CPT/HCPCS: 36415; 80053; 85027; 86780; 87389; 87811; 90686; 93005; 93010; C9803-CS; G0008; U0003; U0005

== ENCOUNTER 2021-09-05 16:48 | Inpatient (IN) | payer OTHER ==
[2021-09-05 19:21] VITALS: BMI 24.8
[2021-09-05] MEDS ORDERED: guaiFENesin 200 MG/10 ML 10 ML UNIT-DOSE CUPS PO PRN (20:29)
[2021-09-05] MEDS ORDERED: NALOXONE HCL 0.4 MG/ML VIAL IM PRN (20:29)
[2021-09-05] MEDS ORDERED: MAGNESIUM CITRATE 300 ML BOTTLE PO PRN (20:29)
[2021-09-05] MEDS ORDERED: PROCHLORPERAZINE MALEATE 5 MG TABLET PO PRN (20:29)
[2021-09-05] MEDS ORDERED: MAGNESIUM HYDROX 2400MG/30ML ORAL SUSPENSION 30 ML CUP PO PRN (20:29)
[2021-09-05] MEDS ORDERED: METHOCARBAMOL 500 MG TABLET PO PRN (20:29)
[2021-09-05] MEDS ORDERED: P-EPHED 60MG/TRIPROLIDI 2.5MG TABLET PO PRN (20:29)
[2021-09-05] MEDS ORDERED: ACETAMINOPHEN 325 MG TABLET (FP) PO PRN ×2 (20:29)
[2021-09-05] MEDS ORDERED: LOPERAMIDE HCL 2 MG CAPSULE PO PRN (20:29)
[2021-09-05] MEDS ORDERED: BISMUTH SUBSALICYLATE 524 MG/30 ML PO PRN (20:29)
[2021-09-05] MEDS ORDERED: MENTHOL/PHENOL 1 EACH UD MM PRN (20:29)
[2021-09-05] MEDS ORDERED: DICYCLOMINE HCL 10 MG CAPSULE PO PRN (20:29)
[2021-09-05] MEDS ORDERED: MAG HYDROX/AL HYDROX/SIMETH 30 ML UNIT-DOSE CUP PO PRN (20:29)
[2021-09-05] MEDS ORDERED: NICOTINE POLACRILEX 2 MG GUM BUC PRN (20:29)
[2021-09-06] MEDS: THIAMINE HCL 100 MG TABLET (FP) PO SCH ×2 (03:08→22:46)
[2021-09-06] MEDS: MELATONIN 5 MG TABLETS PO SCH ×2 (03:08→22:46)
[2021-09-06] MEDS ORDERED: methaDONE HCL 10 MG TABLET (FOR DETOX USE ONLY) PO ONE (09:15)
[2021-09-06] MEDS ORDERED: cloNIDine HCL 0.1 MG TABLET PO PRN (09:15)
[2021-09-06] MEDS ORDERED: methaDONE HCL 10 MG TABLET PO SCH (10:00)
[2021-09-06] MEDS ORDERED: methaDONE HCL 40 MG DISPERSABLE TABLET ONE (11:40)
[2021-09-06] MEDS ORDERED: methaDONE HCL 10 MG TABLET ONE (11:40)
[2021-09-06 12:09] LABS: HEMOGLOBIN 12.9 GM/dL (11.7-16.9); MCH 29.1 pg (25.7-33.7); MEAN CELL VOLUME 85.7 fl (80-96); MEAN PLT VOLUME 7.9 fl (7.5-11.1); PLATELET COUNT 246 10^3/uL (134-434); RBC 4.43 M/mm3 (4.00-5.60); RDW 13.5 % (11.9-15.9); WHITE BLOOD COUNT 9.3 K/mm3 (4.0-10.0)
[2021-09-06 12:15] LABS: ALBUMIN 3.3 g/dl (3.4-5.0); BLOOD UREA NITROGEN 16.2 mg/dL (7-18)
[2021-09-06 12:17] LABS: BILIRUBIN,TOTAL 0.3 mg/dL (0.2-1)
[2021-09-06 12:19] LABS: TOT PROT 6.7 g/dl (6.4-8.2)
[2021-09-06] MEDS: NICOTINE 14 MG/24 HOURS TOPICAL PATCH TD SCH (12:35)
[2021-09-06] MEDS: PRENATAL VITAMINS W/ FOLIC ACID TABLET (FP) PO SCH (12:36)
[2021-09-06] MEDS: diazePAM 5 MG TABLET PO SCH ×3 (12:36→22:47)
[2021-09-06] MEDS: FLUoxetine HCL 20 MG CAPSULE PO SCH (14:24)
[2021-09-06] MEDS: diazePAM 5 MG TABLET PO PRN (14:25)
[2021-09-06] MEDS: traZODone HCL 100 MG TABLET (FP) PO SCH (22:46)
[2021-09-06] MEDS: risperiDONE 2 MG TABLET PO SCH (22:46)
[2021-09-07] MEDS ORDERED: methaDONE HCL 40 MG DISPERSABLE TABLET ONE (04:03)
[2021-09-07] MEDS ORDERED: methaDONE HCL 10 MG TABLET ONE (04:03)
[2021-09-07] MEDS: diazePAM 5 MG TABLET PO SCH ×4 (05:31→22:16)
[2021-09-07] MEDS: PRENATAL VITAMINS W/ FOLIC ACID TABLET (FP) PO SCH (10:11)
[2021-09-07] MEDS: NICOTINE 14 MG/24 HOURS TOPICAL PATCH TD SCH (10:11)
[2021-09-07] MEDS: FLUoxetine HCL 20 MG CAPSULE PO SCH (10:12)
[2021-09-07] MEDS: IBUPROFEN 400 MG TABLET (FP) PO PRN ×2 (11:48→22:17)
[2021-09-07] MEDS: diazePAM 5 MG TABLET PO PRN (14:28)
[2021-09-07] MEDS: BENZOCAINE 20 % GEL TUBE MM PRN (21:30)
[2021-09-07] MEDS: risperiDONE 2 MG TABLET PO SCH (22:15)
[2021-09-07] MEDS: THIAMINE HCL 100 MG TABLET (FP) PO SCH (22:15)
[2021-09-07] MEDS: traZODone HCL 100 MG TABLET (FP) PO SCH ×2 (22:15→22:47)
[2021-09-07] MEDS: MELATONIN 5 MG TABLETS PO SCH (22:16)
[2021-09-08] MEDS ORDERED: methaDONE HCL 40 MG DISPERSABLE TABLET ONE (04:39)
[2021-09-08] MEDS ORDERED: methaDONE HCL 10 MG TABLET ONE (04:39)
[2021-09-08] MEDS: diazePAM 5 MG TABLET PO SCH ×3 (05:18→22:03)
[2021-09-08] MEDS: BENZOCAINE 20 % GEL TUBE MM PRN (05:41)
[2021-09-08] MEDS: IBUPROFEN 400 MG TABLET (FP) PO PRN ×2 (05:42→22:12)
[2021-09-08] MEDS ORDERED: methaDONE HCL 10 MG TABLET (FOR DETOX USE ONLY) PO ONE (10:00)
[2021-09-08 10:06] LABS: SARS-CoV-2 NAA Not Detected (Not Detected)
[2021-09-08] MEDS: FLUoxetine HCL 20 MG CAPSULE PO SCH (10:26)
[2021-09-08] MEDS: NICOTINE 14 MG/24 HOURS TOPICAL PATCH TD SCH (10:26)
[2021-09-08] MEDS: PRENATAL VITAMINS W/ FOLIC ACID TABLET (FP) PO SCH (10:26)
[2021-09-08 11:59] LABS: SGOT/AST 48 U/L (15-37)
[2021-09-08 12:00] LABS: SGPT/ALT 65 U/L (13-61)
[2021-09-08] MEDS: risperiDONE 2 MG TABLET PO SCH (22:02)
[2021-09-08] MEDS: THIAMINE HCL 100 MG TABLET (FP) PO SCH (22:02)
[2021-09-08] MEDS: traZODone HCL 100 MG TABLET (FP) PO SCH (22:02)
[2021-09-08] MEDS: MELATONIN 5 MG TABLETS PO SCH (22:03)
[2021-09-09] MEDS ORDERED: methaDONE HCL 10 MG TABLET ONE (04:14)
[2021-09-09] MEDS ORDERED: methaDONE HCL 40 MG DISPERSABLE TABLET ONE (04:15)
[2021-09-09] MEDS ORDERED: diazePAM 5 MG TABLET PO SCH (06:00)
[2021-09-09] MEDS: IBUPROFEN 400 MG TABLET (FP) PO PRN (06:21)
[2021-09-09] MEDS: BENZOCAINE 20 % GEL TUBE MM PRN (06:22)
[2021-09-09 09:49] VITALS: BP 102/59; PULSE 73; TEMP 97.4
[2021-09-10] MEDS ORDERED: diazePAM 5 MG TABLET PO ONE (06:00)
[2021-09-10] MEDS ORDERED: methaDONE HCL 10 MG TABLET (FOR DETOX USE ONLY) PO ONE (10:00)
== END 2021-09-09 09:37 | disposition home or self-care (01) | DRG 773 ==
LOC: YASAS 16:48 → Y6N 09-06 12:38
PROVIDERS: ADMIT Allergy & Immunology; ATTEND Allergy & Immunology
PROC: HZ2ZZZZ Detoxification Services for Substance Abuse Treatment (ICD-10-PCS; principal; 2021-09-06)
DX: F13.230 Sedative, hypnotic or anxiolytic dependence with withdrawal, uncomplicated (principal); F11.20 Opioid dependence, uncomplicated; F12.20 Cannabis dependence, uncomplicated; F17.210 Nicotine dependence, cigarettes, uncomplicated; F25.1 Schizoaffective disorder, depressive type; K08.89 Other specified disorders of teeth and supporting structures; R74.01 Elevation of levels of liver transaminase levels; Z59.00 Homelessness unspecified
CPT/HCPCS: 36415; 80053; 84450; 84460; 85027; 86780; 87811; C9803-CS; U0003; U0005

== ENCOUNTER 2021-11-18 13:35 | Inpatient (IN) | payer OTHER ==
[2021-11-18 14:18] VITALS: BMI 26.6
[2021-11-18] MEDS ORDERED: ONDANSETRON *ODT* 4 MG TABLET SL PRN (18:06)
[2021-11-18] MEDS ORDERED: MAGNESIUM HYDROX 2400MG/30ML ORAL SUSPENSION 30 ML CUP PO PRN (18:06)
[2021-11-18] MEDS ORDERED: MAGNESIUM CITRATE 300 ML BOTTLE PO PRN (18:06)
[2021-11-18] MEDS ORDERED: BISMUTH SUBSALICYLATE 524 MG/30 ML PO PRN (18:06)
[2021-11-18] MEDS ORDERED: LOPERAMIDE HCL 2 MG CAPSULE PO PRN (18:06)
[2021-11-18] MEDS ORDERED: IBUPROFEN 600 MG TABLET (FP) PO PRN (18:06)
[2021-11-18] MEDS ORDERED: ACETAMINOPHEN 325 MG TABLET (FP) PO PRN ×2 (18:06)
[2021-11-18] MEDS ORDERED: BENZOCAINE/MENTHOL (CHLORASEPTIC ) LOZENGE MM PRN (18:06)
[2021-11-18] MEDS ORDERED: P-EPHED 60MG/TRIPROLIDI 2.5MG TABLET PO PRN (18:06)
[2021-11-18] MEDS ORDERED: DICYCLOMINE HCL 10 MG CAPSULE PO PRN (18:06)
[2021-11-18] MEDS ORDERED: IBUPROFEN 400 MG TABLET (FP) PO PRN (18:06)
[2021-11-18] MEDS ORDERED: METHOCARBAMOL 500 MG TABLET PO PRN (18:06)
[2021-11-19] MEDS: diazePAM 5 MG TABLET PO SCH ×5 (00:04→22:21)
[2021-11-19] MEDS: THIAMINE HCL 100 MG TABLET (FP) PO SCH ×2 (00:04→22:21)
[2021-11-19] MEDS: hydrOXYzine PAMOATE 25 MG CAPSULE (FP) PO PRN ×2 (00:05→05:31)
[2021-11-19] MEDS: MELATONIN 5 MG TABLETS PO PRN ×2 (00:06→22:22)
[2021-11-19] MEDS: PRENATAL VITAMINS W/ FOLIC ACID TABLET (FP) PO SCH (10:20)
[2021-11-19 14:13] LABS: HEMATOCRIT 40.2 % (35.4-49); HEMOGLOBIN 13.4 GM/dL (11.7-16.9); MCH 28.8 pg (25.7-33.7); MCHC 33.4 g/dl (32.0-35.9); MEAN CELL VOLUME 86.2 fl (80-96); MEAN PLT VOLUME 8.5 fl (7.5-11.1); PLATELET COUNT 258 10^3/uL (134-434); RBC 4.66 M/mm3 (4.00-5.60); RDW 15.3 % (11.9-15.9); WHITE BLOOD COUNT 5.9 K/mm3 (4.0-10.0)
[2021-11-19 14:16] LABS: ALBUMIN 3.8 g/dl (3.4-5.0); BLOOD UREA NITROGEN 18.3 mg/dL (7-18)
[2021-11-19 14:19] LABS: CREATININE 0.7 mg/dL (0.55-1.3)
[2021-11-19 14:20] LABS: BILIRUBIN,TOTAL 1.6 mg/dL (0.2-1)
[2021-11-19 14:21] LABS: TOT PROT 6.7 g/dl (6.4-8.2)
[2021-11-19] MEDS: MAG HYDROX/AL HYDROX/SIMETH 30 ML UNIT-DOSE CUP PO PRN (20:12)
[2021-11-20] MEDS: diazePAM 5 MG TABLET PO PRN ×2 (02:07→18:02)
[2021-11-20] MEDS: diazePAM 5 MG TABLET PO SCH ×3 (05:15→22:26)
[2021-11-20] MEDS: PRENATAL VITAMINS W/ FOLIC ACID TABLET (FP) PO SCH (10:14)
[2021-11-20] MEDS: ALBUTEROL SO4 HFA INHALER IH PRN ×2 (15:43→22:26)
[2021-11-20] MEDS: MAG HYDROX/AL HYDROX/SIMETH 30 ML UNIT-DOSE CUP PO PRN (18:39)
[2021-11-20] MEDS: THIAMINE HCL 100 MG TABLET (FP) PO SCH (22:26)
[2021-11-20] MEDS: hydrOXYzine PAMOATE 25 MG CAPSULE (FP) PO PRN (22:26)
[2021-11-20] MEDS: MELATONIN 5 MG TABLETS PO PRN (22:26)
[2021-11-21] MEDS: diazePAM 5 MG TABLET PO PRN (01:25)
[2021-11-21] MEDS: ALBUTEROL SO4 HFA INHALER IH PRN (05:18)
[2021-11-21] MEDS ORDERED: diazePAM 5 MG TABLET PO SCH (06:00)
[2021-11-21 06:21] VITALS: PULSE 85
[2021-11-21 09:12] VITALS: BP 128/78; TEMP 96.9
[2021-11-22] MEDS ORDERED: diazePAM 5 MG TABLET PO ONE (06:00)
== END 2021-11-21 09:09 | disposition left against medical advice (07) | DRG 770 ==
LOC: YASAS 13:35 → Y3N 20:37
PROVIDERS: ADMIT Allergy & Immunology; ATTEND Surgery
PROC: HZ2ZZZZ Detoxification Services for Substance Abuse Treatment (ICD-10-PCS; principal; 2021-11-18)
DX: F13.230 Sedative, hypnotic or anxiolytic dependence with withdrawal, uncomplicated (principal); F11.20 Opioid dependence, uncomplicated; F12.20 Cannabis dependence, uncomplicated; F25.1 Schizoaffective disorder, depressive type
CPT/HCPCS: 36415; 80053; 85027; 86780; 87811; C9803-CS; U0003; U0005

== ENCOUNTER 2021-12-31 16:00 | Inpatient (IN) | payer OTHER ==
[2021-12-31 16:45] VITALS: BMI 26.6
[2021-12-31] MEDS ORDERED: MAGNESIUM HYDROX 2400MG/30ML ORAL SUSPENSION 30 ML CUP PO PRN (18:28)
[2021-12-31] MEDS ORDERED: MAG HYDROX/AL HYDROX/SIMETH 30 ML UNIT-DOSE CUP PO PRN (18:28)
[2021-12-31] MEDS ORDERED: chlordiazePOXIDE HCL 25 MG CAPSULE PO PRN (18:28)
[2021-12-31] MEDS ORDERED: BISMUTH SUBSALICYLATE 524 MG/30 ML PO PRN (18:28)
[2021-12-31] MEDS ORDERED: LOPERAMIDE HCL 2 MG CAPSULE PO PRN (18:28)
[2021-12-31] MEDS ORDERED: IBUPROFEN 400 MG TABLET (FP) PO PRN (18:28)
[2021-12-31] MEDS ORDERED: BENZOCAINE/MENTHOL (CHLORASEPTIC ) LOZENGE MM PRN (18:28)
[2021-12-31] MEDS ORDERED: ACETAMINOPHEN 325 MG TABLET (FP) PO PRN ×2 (18:28)
[2021-12-31] MEDS ORDERED: ONDANSETRON *ODT* 4 MG TABLET SL PRN (18:28)
[2021-12-31] MEDS ORDERED: IBUPROFEN 600 MG TABLET (FP) PO PRN (18:28)
[2021-12-31] MEDS ORDERED: MAGNESIUM CITRATE 300 ML BOTTLE PO PRN (18:28)
[2021-12-31] MEDS ORDERED: DICYCLOMINE HCL 10 MG CAPSULE PO PRN (18:28)
[2021-12-31] MEDS: THIAMINE HCL 100 MG TABLET (FP) PO SCH (22:45)
[2021-12-31] MEDS: MELATONIN 5 MG TABLETS PO SCH (22:45)
[2021-12-31] MEDS: hydrOXYzine PAMOATE 25 MG CAPSULE (FP) PO SCH (22:45)
[2021-12-31] MEDS: diazePAM 5 MG TABLET PO SCH (22:46)
[2021-12-31] MEDS ORDERED: chlordiazePOXIDE HCL 25 MG CAPSULE PO SCH (23:00)
[2022-01-01] MEDS: diazePAM 5 MG TABLET PO SCH ×4 (07:40→22:39)
[2022-01-01] MEDS: hydrOXYzine PAMOATE 25 MG CAPSULE (FP) PO SCH ×5 (07:40→22:39)
[2022-01-01] MEDS: PRENATAL VITAMINS W/ FOLIC ACID TABLET (FP) PO SCH (11:42)
[2022-01-01 14:51] LABS: HEMATOCRIT 40.4 % (35.4-49); HEMOGLOBIN 13.6 GM/dL (11.7-16.9); MCH 28.8 pg (25.7-33.7); MCHC 33.6 g/dl (32.0-35.9); MEAN CELL VOLUME 85.9 fl (80-96); MEAN PLT VOLUME 9.6 fl (7.5-11.1); PLATELET COUNT 213 10^3/uL (134-434); RDW 14.3 % (11.9-15.9); WHITE BLOOD COUNT 7.4 K/mm3 (4.0-10.0)
[2022-01-01 15:05] LABS: ALBUMIN 3.6 g/dl (3.4-5.0); BLOOD UREA NITROGEN 15.6 mg/dL (7-18); CALCIUM 9.2 mg/dL (8.5-10.1)
[2022-01-01 15:08] LABS: CREATININE 0.8 mg/dL (0.55-1.3)
[2022-01-01 15:10] LABS: BILIRUBIN,TOTAL 0.5 mg/dL (0.2-1); TOT PROT 6.7 g/dl (6.4-8.2)
[2022-01-01] MEDS: THIAMINE HCL 100 MG TABLET (FP) PO SCH (22:39)
[2022-01-01] MEDS: MELATONIN 5 MG TABLETS PO SCH (22:39)
[2022-01-02] MEDS ORDERED: chlordiazePOXIDE HCL 25 MG CAPSULE PO SCH (05:00)
[2022-01-02] MEDS: diazePAM 5 MG TABLET PO SCH ×3 (06:00→22:39)
[2022-01-02] MEDS: hydrOXYzine PAMOATE 25 MG CAPSULE (FP) PO SCH ×5 (06:01→22:39)
[2022-01-02] MEDS: diazePAM 5 MG TABLET PO PRN (10:37)
[2022-01-02] MEDS: PRENATAL VITAMINS W/ FOLIC ACID TABLET (FP) PO SCH (10:37)
[2022-01-02] MEDS: THIAMINE HCL 100 MG TABLET (FP) PO SCH (22:39)
[2022-01-02] MEDS: MELATONIN 5 MG TABLETS PO SCH (22:39)
[2022-01-02] MEDS: METHOCARBAMOL 500 MG TABLET PO PRN (22:41)
[2022-01-03] MEDS ORDERED: chlordiazePOXIDE HCL 10 MG CAPSULE PO PRN
[2022-01-03] MEDS ORDERED: chlordiazePOXIDE HCL 10 MG CAPSULE PO SCH (05:00)
[2022-01-03] MEDS: diazePAM 5 MG TABLET PO SCH ×2 (08:11→17:53)
[2022-01-03] MEDS: hydrOXYzine PAMOATE 25 MG CAPSULE (FP) PO SCH ×5 (08:12→22:09)
[2022-01-03] MEDS: METHOCARBAMOL 500 MG TABLET PO PRN (10:42)
[2022-01-03] MEDS: diazePAM 5 MG TABLET PO PRN (10:42)
[2022-01-03] MEDS: PRENATAL VITAMINS W/ FOLIC ACID TABLET (FP) PO SCH (10:42)
[2022-01-03] MEDS: THIAMINE HCL 100 MG TABLET (FP) PO SCH (22:09)
[2022-01-03] MEDS: MELATONIN 5 MG TABLETS PO SCH (22:09)
[2022-01-04] MEDS ORDERED: chlordiazePOXIDE HCL 10 MG CAPSULE PO SCH (05:00)
[2022-01-04] MEDS ORDERED: diazePAM 5 MG TABLET PO ONE (06:00)
[2022-01-04] MEDS: hydrOXYzine PAMOATE 25 MG CAPSULE (FP) PO SCH ×3 (06:53→14:24)
[2022-01-04 09:04] VITALS: RESP 16
[2022-01-04] MEDS: PRENATAL VITAMINS W/ FOLIC ACID TABLET (FP) PO SCH (10:46)
[2022-01-04 12:58] VITALS: BP 115/65; PULSE 67; TEMP 97.7
[2022-01-05] MEDS ORDERED: chlordiazePOXIDE HCL 10 MG CAPSULE PO ONE (05:00)
== END 2022-01-04 14:52 | disposition home or self-care (01) | DRG 773 ==
LOC: YASAS 16:00 → Y3N 18:25
PROVIDERS: ADMIT Allergy & Immunology; ATTEND Surgery
PROC: HZ2ZZZZ Detoxification Services for Substance Abuse Treatment (ICD-10-PCS; principal; 2021-12-31)
DX: F13.230 Sedative, hypnotic or anxiolytic dependence with withdrawal, uncomplicated (principal); F11.20 Opioid dependence, uncomplicated; F12.20 Cannabis dependence, uncomplicated; F31.9 Bipolar disorder, unspecified; F41.9 Anxiety disorder, unspecified; G47.00 Insomnia, unspecified
CPT/HCPCS: 36415; 80053; 85027; 86780; C9803-CS; U0003; U0005

== ENCOUNTER 2022-03-13 15:47 | Inpatient (IN) | payer OTHER ==
[2022-03-13 19:37] VITALS: BMI 25.0
[2022-03-13] MEDS ORDERED: METHOCARBAMOL 500 MG TABLET PO PRN (20:00)
[2022-03-13] MEDS ORDERED: IBUPROFEN 400 MG TABLET (FP) PO PRN (20:00)
[2022-03-13] MEDS ORDERED: BISMUTH SUBSALICYLATE 524 MG/30 ML PO PRN (20:00)
[2022-03-13] MEDS ORDERED: hydrOXYzine PAMOATE 25 MG CAPSULE (FP) PO PRN (20:00)
[2022-03-13] MEDS ORDERED: MAGNESIUM HYDROX 2400MG/30ML ORAL SUSPENSION 30 ML CUP PO PRN (20:00)
[2022-03-13] MEDS ORDERED: MAGNESIUM CITRATE 300 ML BOTTLE PO PRN (20:00)
[2022-03-13] MEDS ORDERED: IBUPROFEN 600 MG TABLET (FP) PO PRN (20:00)
[2022-03-13] MEDS ORDERED: ONDANSETRON *ODT* 4 MG TABLET SL PRN (20:00)
[2022-03-13] MEDS ORDERED: BENZOCAINE/MENTHOL (CHLORASEPTIC ) LOZENGE MM PRN (20:00)
[2022-03-13] MEDS ORDERED: MAG HYDROX/AL HYDROX/SIMETH 30 ML UNIT-DOSE CUP PO PRN (20:00)
[2022-03-13] MEDS ORDERED: NALOXONE HCL (KLOXXADO) 8 MG SPRAY NS PRN (20:00)
[2022-03-13] MEDS ORDERED: guaiFENesin 200 MG/10 ML 10 ML UNIT-DOSE CUPS PO PRN (20:00)
[2022-03-13] MEDS ORDERED: P-EPHED 60MG/TRIPROLIDI 2.5MG TABLET PO PRN (20:00)
[2022-03-13] MEDS ORDERED: ACETAMINOPHEN 325 MG TABLET (FP) PO PRN ×2 (20:00)
[2022-03-13] MEDS ORDERED: DICYCLOMINE HCL 10 MG CAPSULE PO PRN (20:00)
[2022-03-13] MEDS ORDERED: LOPERAMIDE HCL 2 MG CAPSULE PO PRN (20:00)
[2022-03-13] MEDS ORDERED: diazePAM 5 MG TABLET PO ONE (21:30)
[2022-03-13] MEDS: THIAMINE HCL 100 MG TABLET (FP) PO SCH (23:25)
[2022-03-13] MEDS: MELATONIN 5 MG TABLETS PO PRN (23:26)
[2022-03-13] MEDS: diazePAM 5 MG TABLET PO SCH (23:29)
[2022-03-14] MEDS: diazePAM 5 MG TABLET PO SCH ×4 (05:43→22:24)
[2022-03-14] MEDS ORDERED: LIDOCAINE 5% TOPICAL PATCH TP SCH (10:00)
[2022-03-14] MEDS: PRENATAL VITAMINS W/ FOLIC ACID TABLET (FP) PO SCH (10:21)
[2022-03-14] MEDS: methaDONE HCL 10 MG TABLET PO SCH (10:21)
[2022-03-14] MEDS: GABAPENTIN 300 MG CAPSULE PO SCH ×2 (10:21→22:23)
[2022-03-14 12:27] LABS: HEMATOCRIT 42.6 % (35.4-49); HEMOGLOBIN 13.9 GM/dL (11.7-16.9); MCH 28.6 pg (25.7-33.7); MCHC 32.6 g/dl (32.0-35.9); MEAN CELL VOLUME 87.8 fl (80-96); MEAN PLT VOLUME 9.9 fl (7.5-11.1); PLATELET COUNT 71 10^3/uL (134-434); RBC 4.85 M/mm3 (4.00-5.60); RDW 13.8 % (11.9-15.9); WHITE BLOOD COUNT 8.3 K/mm3 (4.0-10.0)
[2022-03-14 12:44] LABS: ALBUMIN 3.4 g/dl (3.4-5.0)
[2022-03-14 12:45] LABS: BLOOD UREA NITROGEN 16.2 mg/dL (7-18)
[2022-03-14 12:46] LABS: CALCIUM 8.9 mg/dL (8.5-10.1)
[2022-03-14 12:47] LABS: CREATININE 0.7 mg/dL (0.55-1.3)
[2022-03-14 12:49] LABS: BILIRUBIN,TOTAL 0.4 mg/dL (0.2-1)
[2022-03-14 12:52] LABS: TOT PROT 6.6 g/dl (6.4-8.2)
[2022-03-14 15:17] LABS: HIV INTERPRETATION NEGATIVE (NEGATIVE)
[2022-03-14] MEDS ORDERED: LIDOCAINE PATCH REMOVAL MC SCH (22:00)
[2022-03-14] MEDS: THIAMINE HCL 100 MG TABLET (FP) PO SCH (22:23)
[2022-03-14] MEDS: risperiDONE 2 MG TABLET PO SCH (22:23)
[2022-03-15] MEDS: diazePAM 5 MG TABLET PO SCH ×3 (05:40→22:03)
[2022-03-15] MEDS: methaDONE HCL 10 MG TABLET PO SCH (05:40)
[2022-03-15] MEDS: PRENATAL VITAMINS W/ FOLIC ACID TABLET (FP) PO SCH (10:14)
[2022-03-15] MEDS: GABAPENTIN 300 MG CAPSULE PO SCH ×2 (10:15→22:03)
[2022-03-15] MEDS: FLUoxetine HCL 20 MG CAPSULE PO SCH (10:15)
[2022-03-15] MEDS: diazePAM 5 MG TABLET PO PRN ×2 (10:17→17:38)
[2022-03-15] MEDS: risperiDONE 2 MG TABLET PO SCH (22:03)
[2022-03-15] MEDS: THIAMINE HCL 100 MG TABLET (FP) PO SCH (22:03)
[2022-03-16] MEDS: diazePAM 5 MG TABLET PO SCH ×2 (05:24→17:57)
[2022-03-16] MEDS: methaDONE HCL 10 MG TABLET PO SCH (05:24)
[2022-03-16] MEDS: PRENATAL VITAMINS W/ FOLIC ACID TABLET (FP) PO SCH (09:58)
[2022-03-16] MEDS: GABAPENTIN 300 MG CAPSULE PO SCH ×2 (09:58→22:12)
[2022-03-16] MEDS: FLUoxetine HCL 20 MG CAPSULE PO SCH (09:58)
[2022-03-16] MEDS: diazePAM 5 MG TABLET PO PRN (10:00)
[2022-03-16 13:33] VITALS: RESP 18
[2022-03-16] MEDS: risperiDONE 2 MG TABLET PO SCH (22:12)
[2022-03-16] MEDS: THIAMINE HCL 100 MG TABLET (FP) PO SCH (22:12)
[2022-03-16] MEDS: MELATONIN 5 MG TABLETS PO PRN (22:14)
[2022-03-17] MEDS ORDERED: diazePAM 5 MG TABLET PO ONE (06:00)
[2022-03-17] MEDS: methaDONE HCL 10 MG TABLET PO SCH (06:02)
[2022-03-17 06:46] VITALS: PULSE 76
[2022-03-17 09:15] VITALS: BP 108/57; TEMP 97.8
[2022-03-17] MEDS: PRENATAL VITAMINS W/ FOLIC ACID TABLET (FP) PO SCH (10:14)
[2022-03-17] MEDS: GABAPENTIN 300 MG CAPSULE PO SCH (10:15)
[2022-03-17] MEDS: FLUoxetine HCL 20 MG CAPSULE PO SCH (10:15)
== END 2022-03-17 11:08 | disposition home or self-care (01) | DRG 773 ==
LOC: YASAS 15:47 → Y3N 21:24
PROVIDERS: ADMIT Allergy & Immunology; ATTEND Surgery
PROC: HZ2ZZZZ Detoxification Services for Substance Abuse Treatment (ICD-10-PCS; principal; 2022-03-13)
DX: F13.230 Sedative, hypnotic or anxiolytic dependence with withdrawal, uncomplicated (principal); F11.20 Opioid dependence, uncomplicated; F12.20 Cannabis dependence, uncomplicated; F25.9 Schizoaffective disorder, unspecified; G47.00 Insomnia, unspecified; Z56.0 Unemployment, unspecified
CPT/HCPCS: 36415; 80053; 85027; 86780; 87389; C9803-CS; U0003; U0005

== ENCOUNTER 2022-05-07 13:22 | Inpatient (IN) | payer OTHER ==
[2022-05-07 15:37] VITALS: BMI 25.1
[2022-05-07] MEDS ORDERED: POLYETHYLENE GLYCOL (HEALTHYLAX) 3350 17 GM PACKET PO PRN (15:51)
[2022-05-07] MEDS ORDERED: NICOTINE 10 MG CARTRIDGE (INHALER) IH PRN (15:51)
[2022-05-07] MEDS ORDERED: IBUPROFEN 400 MG TABLET (FP) PO PRN (15:51)
[2022-05-07] MEDS ORDERED: NICOTINE 7 MG/24 HOURS TOPICAL PATCH TD PRN (15:51)
[2022-05-07] MEDS ORDERED: BISMUTH SUBSALICYLATE 524 MG/30 ML PO PRN (15:51)
[2022-05-07] MEDS ORDERED: ACETAMINOPHEN 325 MG TABLET (FP) PO PRN ×2 (15:51)
[2022-05-07] MEDS ORDERED: DICYCLOMINE HCL 10 MG CAPSULE PO PRN (15:51)
[2022-05-07] MEDS ORDERED: MAG HYDROX/AL HYDROX/SIMETH 30 ML UNIT-DOSE CUP PO PRN (15:51)
[2022-05-07] MEDS ORDERED: BENZOCAINE/MENTHOL (CHLORASEPTIC ) LOZENGE MM PRN (15:51)
[2022-05-07] MEDS ORDERED: IBUPROFEN 600 MG TABLET (FP) PO PRN (15:51)
[2022-05-07] MEDS ORDERED: ONDANSETRON *ODT* 4 MG TABLET SL PRN (15:51)
[2022-05-07] MEDS ORDERED: NICOTINE POLACRILEX 2 MG GUM BUC PRN (15:51)
[2022-05-07] MEDS ORDERED: hydrOXYzine PAMOATE 25 MG CAPSULE (FP) PO PRN (15:51)
[2022-05-07] MEDS ORDERED: diazePAM 5 MG TABLET PO PRN (15:51)
[2022-05-07] MEDS ORDERED: MAGNESIUM HYDROX 2400MG/30ML ORAL SUSPENSION 30 ML CUP PO PRN (15:51)
[2022-05-07] MEDS ORDERED: LOPERAMIDE HCL 2 MG CAPSULE PO PRN (15:51)
[2022-05-07] MEDS ORDERED: NALOXONE HCL (KLOXXADO) 8 MG SPRAY NS PRN (15:51)
[2022-05-07] MEDS: diazePAM 5 MG TABLET PO SCH ×2 (17:33→22:58)
[2022-05-07] MEDS: PRENATAL VITAMINS W/ FOLIC ACID TABLET (FP) PO SCH (17:38)
[2022-05-07] MEDS: THIAMINE HCL 100 MG TABLET (FP) PO SCH (22:58)
[2022-05-07] MEDS: MELATONIN 5 MG TABLETS PO SCH (22:59)
[2022-05-08] MEDS ORDERED: methaDONE HCL 40 MG DISPERSABLE TABLET PO SCH (06:00)
[2022-05-08] MEDS ORDERED: methaDONE 40 MG, methaDONE 30 MG PO SCH (06:00)
[2022-05-08] MEDS: diazePAM 5 MG TABLET PO SCH ×4 (06:02→23:15)
[2022-05-08] MEDS: methaDONE 40 MG, methaDONE 30 MG PO SCH (06:03)
[2022-05-08 10:21] LABS: HEMATOCRIT 37.6 % (35.4-49); HEMOGLOBIN 12.8 GM/dL (11.7-16.9); MCH 29.1 pg (25.7-33.7); MEAN CELL VOLUME 85.5 fl (80-96); MEAN PLT VOLUME 9.3 fl (7.5-11.1); PLATELET COUNT 134 10^3/uL (134-434); RDW 13.8 % (11.9-15.9); WHITE BLOOD COUNT 5.7 K/mm3 (4.0-10.0)
[2022-05-08] MEDS: PRENATAL VITAMINS W/ FOLIC ACID TABLET (FP) PO SCH (10:28)
[2022-05-08] MEDS: METHOCARBAMOL 500 MG TABLET PO PRN (10:28)
[2022-05-08 10:30] LABS: ALBUMIN 3.5 g/dl (3.4-5.0); BLOOD UREA NITROGEN 19.1 mg/dL (7-18)
[2022-05-08 10:33] LABS: CREATININE 0.7 mg/dL (0.55-1.3)
[2022-05-08 10:35] LABS: BILIRUBIN,TOTAL 1.1 mg/dL (0.2-1); TOT PROT 6.4 g/dl (6.4-8.2)
[2022-05-08] MEDS: FLUoxetine HCL 20 MG CAPSULE PO SCH (11:01)
[2022-05-08] MEDS ORDERED: OLANZapine 7.5 MG TABLET PO SCH (22:00)
[2022-05-08] MEDS: MELATONIN 5 MG TABLETS PO SCH (23:14)
[2022-05-08] MEDS: THIAMINE HCL 100 MG TABLET (FP) PO SCH (23:14)
[2022-05-08] MEDS: OLANZapine 5 MG TABLET PO SCH (23:36)
[2022-05-09] MEDS: methaDONE 40 MG, methaDONE 30 MG PO SCH (05:54)
[2022-05-09] MEDS: diazePAM 5 MG TABLET PO SCH ×3 (05:55→22:20)
[2022-05-09] MEDS: FLUoxetine HCL 20 MG CAPSULE PO SCH (11:26)
[2022-05-09] MEDS: PRENATAL VITAMINS W/ FOLIC ACID TABLET (FP) PO SCH (11:26)
[2022-05-09] MEDS: METHOCARBAMOL 500 MG TABLET PO PRN (11:27)
[2022-05-09] MEDS: MELATONIN 5 MG TABLETS PO SCH (22:18)
[2022-05-09] MEDS: OLANZapine 5 MG TABLET PO SCH (22:18)
[2022-05-09] MEDS: THIAMINE HCL 100 MG TABLET (FP) PO SCH (22:18)
[2022-05-10] MEDS: methaDONE 40 MG, methaDONE 30 MG PO SCH (05:50)
[2022-05-10] MEDS: diazePAM 5 MG TABLET PO SCH ×2 (05:50→17:43)
[2022-05-10] MEDS: PRENATAL VITAMINS W/ FOLIC ACID TABLET (FP) PO SCH (10:32)
[2022-05-10] MEDS: FLUoxetine HCL 20 MG CAPSULE PO SCH (10:32)
[2022-05-10] MEDS: METHOCARBAMOL 500 MG TABLET PO PRN ×2 (10:32→22:10)
[2022-05-10 18:28] VITALS: RESP 18
[2022-05-10] MEDS: THIAMINE HCL 100 MG TABLET (FP) PO SCH (22:10)
[2022-05-10] MEDS: OLANZapine 5 MG TABLET PO SCH (22:10)
[2022-05-10] MEDS: MELATONIN 5 MG TABLETS PO SCH (22:10)
[2022-05-11] MEDS ORDERED: diazePAM 5 MG TABLET PO ONE (06:00)
[2022-05-11] MEDS: methaDONE 40 MG, methaDONE 30 MG PO SCH (06:03)
[2022-05-11] MEDS: FLUoxetine HCL 20 MG CAPSULE PO SCH (10:34)
[2022-05-11] MEDS: PRENATAL VITAMINS W/ FOLIC ACID TABLET (FP) PO SCH (10:34)
[2022-05-11] MEDS: MELATONIN 5 MG TABLETS PO SCH (22:21)
[2022-05-11] MEDS: THIAMINE HCL 100 MG TABLET (FP) PO SCH (22:21)
[2022-05-11] MEDS: OLANZapine 5 MG TABLET PO SCH (22:21)
[2022-05-11] MEDS: METHOCARBAMOL 500 MG TABLET PO PRN (22:21)
[2022-05-12] MEDS: methaDONE 40 MG, methaDONE 30 MG PO SCH (06:06)
[2022-05-12] MEDS: PRENATAL VITAMINS W/ FOLIC ACID TABLET (FP) PO SCH (09:11)
[2022-05-12] MEDS: FLUoxetine HCL 20 MG CAPSULE PO SCH (09:11)
[2022-05-12 09:34] VITALS: BP 131/93; PULSE 87; TEMP 97.3
== END 2022-05-12 09:48 | disposition home or self-care (01) | DRG 773 ==
LOC: YASAS 13:22 → Y6N 16:53
PROVIDERS: ADMIT Allergy & Immunology; ATTEND Surgery
PROC: HZ2ZZZZ Detoxification Services for Substance Abuse Treatment (ICD-10-PCS; principal; 2022-05-07)
DX: F13.230 Sedative, hypnotic or anxiolytic dependence with withdrawal, uncomplicated (principal); F11.20 Opioid dependence, uncomplicated; F12.20 Cannabis dependence, uncomplicated; F17.210 Nicotine dependence, cigarettes, uncomplicated; F25.9 Schizoaffective disorder, unspecified
CPT/HCPCS: 36415; 80053; 85027; 86780; 87811; C9803-CS; U0003; U0005

== ENCOUNTER 2022-09-24 15:36 | Inpatient (IN) | payer OTHER ==
[2022-09-24 17:21] VITALS: BMI 25.7
[2022-09-24] MEDS ORDERED: ONDANSETRON *ODT* 4 MG TABLET SL PRN (20:05)
[2022-09-24] MEDS ORDERED: guaiFENesin 600 MG TABLET.ER (FP) PO PRN (20:05)
[2022-09-24] MEDS ORDERED: DICYCLOMINE HCL 10 MG CAPSULE PO PRN (20:05)
[2022-09-24] MEDS ORDERED: MAGNESIUM HYDROX 2400MG/30ML ORAL SUSPENSION 30 ML CUP PO PRN (20:05)
[2022-09-24] MEDS ORDERED: P-EPHED 60MG/TRIPROLIDI 2.5MG TABLET PO PRN (20:05)
[2022-09-24] MEDS ORDERED: NALOXONE HCL 0.4 MG/ML VIAL IM PRN (20:05)
[2022-09-24] MEDS ORDERED: BENZOCAINE/MENTHOL (CHLORASEPTIC ) LOZENGE MM PRN (20:05)
[2022-09-24] MEDS ORDERED: BENZONATATE 200 MG CAPSULE PO PRN (20:05)
[2022-09-24] MEDS ORDERED: POLYETHYLENE GLYCOL (HEALTHYLAX) 3350 17 GM PACKET PO PRN (20:05)
[2022-09-24] MEDS ORDERED: MAG HYDROX/AL HYDROX/SIMETH 30 ML UNIT-DOSE CUP PO PRN (20:05)
[2022-09-24] MEDS ORDERED: BISMUTH SUBSALICYLATE 524 MG/30 ML PO PRN (20:05)
[2022-09-24] MEDS ORDERED: NALOXONE HCL (KLOXXADO) 8 MG SPRAY NS PRN (20:05)
[2022-09-24] MEDS ORDERED: LOPERAMIDE HCL 2 MG CAPSULE PO PRN (20:05)
[2022-09-24] MEDS: METHOCARBAMOL 500 MG TABLET PO PRN (22:34)
[2022-09-24] MEDS: diazePAM 5 MG TABLET PO SCH (22:35)
[2022-09-24] MEDS: MELATONIN 5 MG TABLETS PO PRN (22:35)
[2022-09-24] MEDS: THIAMINE HCL 100 MG TABLET (FP) PO SCH (22:35)
[2022-09-25] MEDS: diazePAM 5 MG TABLET PO SCH ×4 (05:39→22:24)
[2022-09-25] MEDS: METHOCARBAMOL 500 MG TABLET PO PRN ×3 (05:40→22:24)
[2022-09-25] MEDS: IBUPROFEN 600 MG TABLET (FP) PO PRN ×2 (08:57→17:48)
[2022-09-25] MEDS: PRENATAL VITAMINS W/ FOLIC ACID TABLET (FP) PO SCH (10:34)
[2022-09-25 11:11] LABS: HEMOGLOBIN 13.3 GM/dL (11.7-16.9); MCH 28.8 pg (25.7-33.7); MCHC 33.3 g/dl (32.0-35.9); MEAN CELL VOLUME 86.4 fl (80-96); MEAN PLT VOLUME 9.5 fl (7.5-11.1); PLATELET COUNT 198 10^3/uL (134-434); RBC 4.62 M/mm3 (4.00-5.60); RDW 14.6 % (11.9-15.9); WHITE BLOOD COUNT 7.2 K/mm3 (4.0-10.0)
[2022-09-25] MEDS: ACETAMINOPHEN 325 MG TABLET (FP) PO PRN (11:49)
[2022-09-25 12:08] LABS: ALBUMIN 3.7 g/dl (3.4-5.0); BLOOD UREA NITROGEN 13.4 mg/dL (7-18); CALCIUM 9.3 mg/dL (8.5-10.1)
[2022-09-25 12:12] LABS: CREATININE 0.8 mg/dL (0.55-1.3); TOT PROT 6.7 g/dl (6.4-8.2)
[2022-09-25 12:13] LABS: BILIRUBIN,TOTAL 1.1 mg/dL (0.2-1)
[2022-09-25] MEDS: THIAMINE HCL 100 MG TABLET (FP) PO SCH (22:24)
[2022-09-25] MEDS: MELATONIN 5 MG TABLETS PO PRN (22:24)
[2022-09-26] MEDS: IBUPROFEN 400 MG TABLET (FP) PO PRN (03:20)
[2022-09-26] MEDS: diazePAM 5 MG TABLET PO SCH ×3 (05:55→22:26)
[2022-09-26] MEDS: ACETAMINOPHEN 325 MG TABLET (FP) PO PRN ×2 (06:09→22:27)
[2022-09-26] MEDS: PRENATAL VITAMINS W/ FOLIC ACID TABLET (FP) PO SCH (09:39)
[2022-09-26] MEDS: diazePAM 5 MG TABLET PO PRN (09:40)
[2022-09-26] MEDS: IBUPROFEN 600 MG TABLET (FP) PO PRN ×2 (09:43→17:27)
[2022-09-26] MEDS: hydrOXYzine PAMOATE 25 MG CAPSULE (FP) PO PRN (17:27)
[2022-09-26] MEDS: MELATONIN 5 MG TABLETS PO PRN (22:26)
[2022-09-26] MEDS: THIAMINE HCL 100 MG TABLET (FP) PO SCH (22:26)
[2022-09-26] MEDS: risperiDONE 2 MG TABLET PO SCH (22:26)
[2022-09-26] MEDS: GABAPENTIN 100 MG CAPSULE PO SCH (22:26)
[2022-09-27] MEDS: diazePAM 5 MG TABLET PO SCH ×2 (06:16→17:39)
[2022-09-27] MEDS: GABAPENTIN 100 MG CAPSULE PO SCH ×3 (06:16→22:11)
[2022-09-27] MEDS ORDERED: FLUoxetine HCL 20 MG CAPSULE PO SCH (10:00)
[2022-09-27] MEDS: FLUoxetine HCL 20 MG CAPSULE PO SCH (10:17)
[2022-09-27] MEDS: METHOCARBAMOL 500 MG TABLET PO PRN ×2 (10:17→22:14)
[2022-09-27] MEDS: diazePAM 5 MG TABLET PO PRN (10:17)
[2022-09-27] MEDS: PRENATAL VITAMINS W/ FOLIC ACID TABLET (FP) PO SCH (10:17)
[2022-09-27] MEDS: IBUPROFEN 600 MG TABLET (FP) PO PRN (14:54)
[2022-09-27] MEDS: ACETAMINOPHEN 325 MG TABLET (FP) PO PRN (17:40)
[2022-09-27] MEDS: THIAMINE HCL 100 MG TABLET (FP) PO SCH (22:11)
[2022-09-27] MEDS: risperiDONE 2 MG TABLET PO SCH (22:11)
[2022-09-27] MEDS: MELATONIN 5 MG TABLETS PO PRN (22:11)
[2022-09-27] MEDS: hydrOXYzine PAMOATE 25 MG CAPSULE (FP) PO PRN (22:14)
[2022-09-28] MEDS: GABAPENTIN 100 MG CAPSULE PO SCH (05:42)
[2022-09-28] MEDS: ACETAMINOPHEN 325 MG TABLET (FP) PO PRN (05:53)
[2022-09-28] MEDS ORDERED: diazePAM 5 MG TABLET PO ONE (06:00)
[2022-09-28] MEDS: IBUPROFEN 400 MG TABLET (FP) PO PRN (07:32)
[2022-09-28] MEDS: METHOCARBAMOL 500 MG TABLET PO PRN (07:32)
[2022-09-28 09:16] VITALS: BP 136/88; PULSE 100; RESP 16; TEMP 97.2
[2022-09-28] MEDS: PRENATAL VITAMINS W/ FOLIC ACID TABLET (FP) PO SCH (09:50)
[2022-09-28] MEDS: FLUoxetine HCL 20 MG CAPSULE PO SCH (09:50)
== END 2022-09-28 10:44 | disposition home or self-care (01) | DRG 773 ==
LOC: YASAS 15:36 → Y3N 20:15
PROVIDERS: ADMIT Allergy & Immunology; ATTEND Surgery
PROC: HZ2ZZZZ Detoxification Services for Substance Abuse Treatment (ICD-10-PCS; principal; 2022-09-24)
DX: F13.230 Sedative, hypnotic or anxiolytic dependence with withdrawal, uncomplicated (principal); F11.20 Opioid dependence, uncomplicated; F12.20 Cannabis dependence, uncomplicated; F31.9 Bipolar disorder, unspecified; Z56.0 Unemployment, unspecified; Z59.00 Homelessness unspecified
CPT/HCPCS: 36415; 80053; 85027; 86780; C9803-CS; U0003; U0005

== ENCOUNTER 2023-01-28 15:05 | Inpatient (IN) | payer OTHER ==
[2023-01-28 15:59] VITALS: BMI 24.4
[2023-01-28] MEDS ORDERED: IBUPROFEN 400 MG TABLET (FP) PO PRN (19:53)
[2023-01-28] MEDS ORDERED: ACETAMINOPHEN 325 MG TABLET (FP) PO PRN (19:53)
[2023-01-28] MEDS ORDERED: BENZOCAINE/MENTHOL (CHLORASEPTIC ) LOZENGE MM PRN (19:53)
[2023-01-28] MEDS ORDERED: NALOXONE HCL 0.4 MG/ML VIAL IM PRN (19:53)
[2023-01-28] MEDS ORDERED: MAG HYDROX/AL HYDROX/SIMETH 30 ML UNIT-DOSE CUP PO PRN (19:53)
[2023-01-28] MEDS ORDERED: BENZONATATE 200 MG CAPSULE PO PRN (19:53)
[2023-01-28] MEDS ORDERED: POLYETHYLENE GLYCOL (HEALTHYLAX) 3350 17 GM PACKET PO PRN (19:53)
[2023-01-28] MEDS ORDERED: IBUPROFEN 600 MG TABLET (FP) PO PRN (19:53)
[2023-01-28] MEDS ORDERED: ONDANSETRON *ODT* 4 MG TABLET SL PRN (19:53)
[2023-01-28] MEDS ORDERED: DICYCLOMINE HCL 10 MG CAPSULE PO PRN (19:53)
[2023-01-28] MEDS ORDERED: LOPERAMIDE HCL 2 MG CAPSULE PO PRN (19:53)
[2023-01-28] MEDS ORDERED: guaiFENesin 600 MG TABLET.ER (FP) PO PRN (19:53)
[2023-01-28] MEDS ORDERED: BISMUTH SUBSALICYLATE 524 MG/30 ML PO PRN (19:53)
[2023-01-28] MEDS ORDERED: MAGNESIUM HYDROX 2400MG/30ML ORAL SUSPENSION 30 ML CUP PO PRN (19:53)
[2023-01-28] MEDS ORDERED: NALOXONE HCL (KLOXXADO) 8 MG SPRAY NS PRN (19:53)
[2023-01-28] MEDS ORDERED: diazePAM 5 MG TABLET PO PRN (19:58)
[2023-01-28] MEDS ORDERED: methaDONE HCL 10 MG TABLET (FOR DETOX USE ONLY) PO ONE ×2 (19:58→22:00)
[2023-01-28] MEDS ORDERED: cloNIDine HCL 0.1 MG TABLET PO PRN (19:58)
[2023-01-28] MEDS: MELATONIN 5 MG TABLETS PO SCH (22:05)
[2023-01-28] MEDS: THIAMINE HCL 100 MG TABLET (FP) PO SCH (22:05)
[2023-01-28] MEDS: diazePAM 5 MG TABLET PO SCH ×2 (22:37→22:40)
[2023-01-29] MEDS: diazePAM 5 MG TABLET PO SCH ×4 (05:42→22:41)
[2023-01-29] MEDS: PRENATAL VITAMINS W/ FOLIC ACID TABLET (FP) PO SCH (10:34)
[2023-01-29 11:15] LABS: POTASSIUM 4.3 mmol/L (3.5-5.1)
[2023-01-29 11:24] LABS: HEMATOCRIT 39.2 % (35.4-49); HEMOGLOBIN 13.2 GM/dL (11.7-16.9); MCH 29.5 pg (25.7-33.7); MCHC 33.7 g/dl (32.0-35.9); MEAN CELL VOLUME 87.6 fl (80-96); MEAN PLT VOLUME 8.7 fl (7.5-11.1); PLATELET COUNT 199 10^3/uL (134-434); RBC 4.48 M/mm3 (4.00-5.60); RDW 14.7 % (11.9-15.9); WHITE BLOOD COUNT 6.2 K/mm3 (4.0-10.0)
[2023-01-29 11:27] LABS: CALCIUM 8.6 mg/dL (8.5-10.1)
[2023-01-29 11:28] LABS: ALBUMIN 3.4 g/dl (3.4-5.0); CREATININE 0.8 mg/dL (0.55-1.3)
[2023-01-29 11:30] LABS: BILIRUBIN,TOTAL 1.3 mg/dL (0.2-1); TOT PROT 6.3 g/dl (6.4-8.2)
[2023-01-29] MEDS: FLUoxetine HCL 20 MG CAPSULE PO SCH (11:49)
[2023-01-29] MEDS: MELATONIN 5 MG TABLETS PO SCH (22:41)
[2023-01-29] MEDS: risperiDONE 2 MG TABLET PO SCH (22:41)
[2023-01-29] MEDS: THIAMINE HCL 100 MG TABLET (FP) PO SCH (22:41)
[2023-01-30] MEDS: diazePAM 5 MG TABLET PO SCH ×3 (06:18→22:22)
[2023-01-30] MEDS ORDERED: methaDONE HCL 10 MG TABLET (FOR DETOX USE ONLY) PO ONE (10:00)
[2023-01-30] MEDS: FLUoxetine HCL 20 MG CAPSULE PO SCH (10:55)
[2023-01-30] MEDS: PRENATAL VITAMINS W/ FOLIC ACID TABLET (FP) PO SCH (10:55)
[2023-01-30] MEDS ORDERED: methaDONE HCL 10 MG TABLET (FOR DETOX USE ONLY) ONE (11:44)
[2023-01-30] MEDS: MELATONIN 5 MG TABLETS PO SCH (22:22)
[2023-01-30] MEDS: risperiDONE 2 MG TABLET PO SCH (22:22)
[2023-01-30] MEDS: THIAMINE HCL 100 MG TABLET (FP) PO SCH (22:22)
[2023-01-31] MEDS: diazePAM 5 MG TABLET PO SCH ×2 (05:34→17:26)
[2023-01-31] MEDS: PRENATAL VITAMINS W/ FOLIC ACID TABLET (FP) PO SCH (10:06)
[2023-01-31] MEDS: FLUoxetine HCL 20 MG CAPSULE PO SCH (10:06)
[2023-01-31] MEDS: METHOCARBAMOL 500 MG TABLET PO PRN (22:42)
[2023-01-31] MEDS: risperiDONE 2 MG TABLET PO SCH (22:42)
[2023-01-31] MEDS: THIAMINE HCL 100 MG TABLET (FP) PO SCH (22:42)
[2023-01-31] MEDS: MELATONIN 5 MG TABLETS PO SCH (22:43)
[2023-02-01] MEDS ORDERED: diazePAM 5 MG TABLET PO ONE (06:00)
[2023-02-01] MEDS ORDERED: methaDONE HCL 10 MG TABLET (FOR DETOX USE ONLY) PO ONE (10:00)
[2023-02-01] MEDS: PRENATAL VITAMINS W/ FOLIC ACID TABLET (FP) PO SCH (10:20)
[2023-02-01] MEDS: FLUoxetine HCL 20 MG CAPSULE PO SCH (10:22)
[2023-02-01] MEDS: METHOCARBAMOL 500 MG TABLET PO PRN (22:40)
[2023-02-01] MEDS: THIAMINE HCL 100 MG TABLET (FP) PO SCH (22:40)
[2023-02-01] MEDS: MELATONIN 5 MG TABLETS PO SCH (22:40)
[2023-02-01] MEDS: risperiDONE 2 MG TABLET PO SCH (22:40)
[2023-02-02 06:29] VITALS: RESP 17
[2023-02-02 09:31] VITALS: BP 117/85; PULSE 77; TEMP 97.1
[2023-02-02] MEDS: FLUoxetine HCL 20 MG CAPSULE PO SCH (10:35)
[2023-02-02] MEDS: PRENATAL VITAMINS W/ FOLIC ACID TABLET (FP) PO SCH (10:35)
== END 2023-02-02 09:50 | disposition home or self-care (01) | DRG 773 ==
LOC: YASAS 15:05 → Y6N 21:11
PROVIDERS: ADMIT Allergy & Immunology; ATTEND Allergy & Immunology
PROC: HZ2ZZZZ Detoxification Services for Substance Abuse Treatment (ICD-10-PCS; principal; 2023-01-28)
DX: F11.23 Opioid dependence with withdrawal (principal); F13.230 Sedative, hypnotic or anxiolytic dependence with withdrawal, uncomplicated; F15.20 Other stimulant dependence, uncomplicated; F12.20 Cannabis dependence, uncomplicated; F25.1 Schizoaffective disorder, depressive type; F19.282 Other psychoactive substance dependence with psychoactive substance-induced sleep disorder
CPT/HCPCS: 36415; 80053; 85027; 86780; 87635; 93005; 93010

== ENCOUNTER 2023-03-17 15:00 | Inpatient (IN) | payer OTHER ==
[2023-03-17 16:40] VITALS: BMI 24.1
[2023-03-17] MEDS ORDERED: guaiFENesin 600 MG TABLET.ER (FP) PO PRN (18:17)
[2023-03-17] MEDS ORDERED: hydrOXYzine PAMOATE 25 MG CAPSULE (FP) PO PRN (18:17)
[2023-03-17] MEDS ORDERED: BENZONATATE 200 MG CAPSULE PO PRN (18:17)
[2023-03-17] MEDS ORDERED: NALOXONE HCL (KLOXXADO) 8 MG SPRAY NS PRN (18:17)
[2023-03-17] MEDS ORDERED: METHOCARBAMOL 500 MG TABLET PO PRN (18:17)
[2023-03-17] MEDS ORDERED: MAG HYDROX/AL HYDROX/SIMETH 30 ML UNIT-DOSE CUP PO PRN (18:17)
[2023-03-17] MEDS ORDERED: diazePAM 5 MG TABLET PO PRN (18:17)
[2023-03-17] MEDS ORDERED: BENZOCAINE/MENTHOL (CHLORASEPTIC ) LOZENGE MM PRN (18:17)
[2023-03-17] MEDS ORDERED: LOPERAMIDE HCL 2 MG CAPSULE PO PRN (18:17)
[2023-03-17] MEDS ORDERED: DICYCLOMINE HCL 10 MG CAPSULE PO PRN (18:17)
[2023-03-17] MEDS ORDERED: MAGNESIUM HYDROX 2400MG/30ML ORAL SUSPENSION 30 ML CUP PO PRN (18:17)
[2023-03-17] MEDS ORDERED: IBUPROFEN 400 MG TABLET (FP) PO PRN (18:17)
[2023-03-17] MEDS ORDERED: BISMUTH SUBSALICYLATE 524 MG/30 ML PO PRN (18:17)
[2023-03-17] MEDS ORDERED: ONDANSETRON *ODT* 4 MG TABLET SL PRN (18:17)
[2023-03-17] MEDS ORDERED: NALOXONE HCL 0.4 MG/ML VIAL IM PRN (18:17)
[2023-03-17] MEDS ORDERED: POLYETHYLENE GLYCOL (HEALTHYLAX) 3350 17 GM PACKET PO PRN (18:17)
[2023-03-17] MEDS: MELATONIN 5 MG TABLETS PO SCH (23:19)
[2023-03-17] MEDS: THIAMINE HCL 100 MG TABLET (FP) PO SCH (23:19)
[2023-03-17] MEDS: diazePAM 5 MG TABLET PO SCH (23:19)
[2023-03-18] MEDS: diazePAM 5 MG TABLET PO SCH ×4 (05:29→22:06)
[2023-03-18] MEDS: PRENATAL VITAMINS W/ FOLIC ACID TABLET (FP) PO SCH (10:07)
[2023-03-18 10:10] LABS: HEMATOCRIT 40.2 % (35.4-49); HEMOGLOBIN 13.7 GM/dL (11.7-16.9); MCH 29.7 pg (25.7-33.7); MEAN CELL VOLUME 87.5 fl (80-96); MEAN PLT VOLUME 9.3 fl (7.5-11.1); PLATELET COUNT 220 10^3/uL (134-434); RDW 14.3 % (11.9-15.9); WHITE BLOOD COUNT 6.3 K/mm3 (4.0-10.0)
[2023-03-18 10:14] LABS: POTASSIUM 4.3 mmol/L (3.5-5.1)
[2023-03-18 10:25] LABS: ALBUMIN 3.7 g/dl (3.4-5.0); BLOOD UREA NITROGEN 18.5 mg/dL (7-18); CALCIUM 8.9 mg/dL (8.5-10.1)
[2023-03-18 10:29] LABS: TOT PROT 6.7 g/dl (6.4-8.2)
[2023-03-18 10:30] LABS: BILIRUBIN,TOTAL 1.1 mg/dL (0.2-1)
[2023-03-18] MEDS ORDERED: FLU VACCINE (FLULAVAL) PF 60 MCG/0.5 ML SYRINGE 2023-2024 IM ONE (12:00)
[2023-03-18] MEDS: MELATONIN 5 MG TABLETS PO SCH (22:06)
[2023-03-18] MEDS: THIAMINE HCL 100 MG TABLET (FP) PO SCH (22:06)
[2023-03-18] MEDS: risperiDONE 1 MG TABLET PO SCH (22:06)
[2023-03-19] MEDS: diazePAM 5 MG TABLET PO SCH ×3 (05:19→22:08)
[2023-03-19] MEDS: IBUPROFEN 600 MG TABLET (FP) PO PRN (09:20)
[2023-03-19] MEDS: PRENATAL VITAMINS W/ FOLIC ACID TABLET (FP) PO SCH (09:20)
[2023-03-19] MEDS: DOCUSATE SODIUM 100 MG CAPSULE (FP) PO SCH ×2 (13:34→22:08)
[2023-03-19] MEDS: risperiDONE 1 MG TABLET PO SCH (22:08)
[2023-03-19] MEDS: THIAMINE HCL 100 MG TABLET (FP) PO SCH (22:08)
[2023-03-19] MEDS: SENNOSIDES 8.6MG TABLET (FP) PO SCH (22:08)
[2023-03-19] MEDS: MELATONIN 5 MG TABLETS PO SCH (22:08)
[2023-03-20] MEDS: DOCUSATE SODIUM 100 MG CAPSULE (FP) PO SCH ×3 (05:40→22:26)
[2023-03-20] MEDS: diazePAM 5 MG TABLET PO SCH ×2 (05:40→17:30)
[2023-03-20] MEDS: PRENATAL VITAMINS W/ FOLIC ACID TABLET (FP) PO SCH (10:08)
[2023-03-20] MEDS: IBUPROFEN 600 MG TABLET (FP) PO PRN (12:40)
[2023-03-20] MEDS: ACETAMINOPHEN 325 MG TABLET (FP) PO PRN (18:33)
[2023-03-20] MEDS: MELATONIN 5 MG TABLETS PO SCH (22:26)
[2023-03-20] MEDS: THIAMINE HCL 100 MG TABLET (FP) PO SCH (22:26)
[2023-03-20] MEDS: SENNOSIDES 8.6MG TABLET (FP) PO SCH (22:26)
[2023-03-20] MEDS: risperiDONE 1 MG TABLET PO SCH (22:26)
[2023-03-21] MEDS: DOCUSATE SODIUM 100 MG CAPSULE (FP) PO SCH (05:21)
[2023-03-21] MEDS: ACETAMINOPHEN 325 MG TABLET (FP) PO PRN (05:22)
[2023-03-21] MEDS ORDERED: diazePAM 5 MG TABLET PO ONE (06:00)
[2023-03-21 09:11] VITALS: BP 126/82; PULSE 104; RESP 16; TEMP 98.6
[2023-03-21] MEDS: PRENATAL VITAMINS W/ FOLIC ACID TABLET (FP) PO SCH (10:17)
== END 2023-03-21 10:49 | disposition home or self-care (01) | DRG 773 ==
LOC: YASAS 15:00 → Y6N 18:10
PROVIDERS: ADMIT Allergy & Immunology; ATTEND Surgery
PROC: HZ2ZZZZ Detoxification Services for Substance Abuse Treatment (ICD-10-PCS; principal; 2023-03-17)
DX: F11.23 Opioid dependence with withdrawal (principal); F13.231 Sedative, hypnotic or anxiolytic dependence with withdrawal delirium; F25.1 Schizoaffective disorder, depressive type; K59.03 Drug induced constipation; Z56.0 Unemployment, unspecified; Z59.00 Homelessness unspecified
CPT/HCPCS: 36415; 80053; 85027; 86780; 87635; 90686; G0008

== ENCOUNTER 2023-04-08 12:27 | Inpatient (IN) | payer OTHER ==
[2023-04-08 13:24] VITALS: BMI 21.6
[2023-04-08] MEDS ORDERED: NALOXONE HCL 0.4 MG/ML VIAL IM PRN (15:16)
[2023-04-08] MEDS ORDERED: MAG HYDROX/AL HYDROX/SIMETH 30 ML UNIT-DOSE CUP PO PRN (15:16)
[2023-04-08] MEDS ORDERED: NALOXONE HCL (KLOXXADO) 8 MG SPRAY NS PRN (15:16)
[2023-04-08] MEDS ORDERED: BENZONATATE 200 MG CAPSULE PO PRN (15:16)
[2023-04-08] MEDS ORDERED: IBUPROFEN 400 MG TABLET (FP) PO PRN (15:16)
[2023-04-08] MEDS ORDERED: ONDANSETRON *ODT* 4 MG TABLET SL PRN (15:16)
[2023-04-08] MEDS ORDERED: POLYETHYLENE GLYCOL (HEALTHYLAX) 3350 17 GM PACKET PO PRN (15:16)
[2023-04-08] MEDS ORDERED: BISMUTH SUBSALICYLATE 262 MG/15 ML BTL PO PRN (15:16)
[2023-04-08] MEDS ORDERED: DICYCLOMINE HCL 10 MG CAPSULE PO PRN (15:16)
[2023-04-08] MEDS ORDERED: BENZOCAINE/MENTHOL (CHLORASEPTIC ) LOZENGE MM PRN (15:16)
[2023-04-08] MEDS ORDERED: LOPERAMIDE HCL 2 MG CAPSULE PO PRN (15:16)
[2023-04-08] MEDS ORDERED: MAGNESIUM HYDROX 2400MG/30ML ORAL SUSPENSION 30 ML CUP PO PRN (15:16)
[2023-04-08] MEDS ORDERED: guaiFENesin 600 MG TABLET.ER (FP) PO PRN (15:16)
[2023-04-08] MEDS ORDERED: chlordiazePOXIDE HCL 25 MG CAPSULE PO PRN (15:19)
[2023-04-08] MEDS: chlordiazePOXIDE HCL 25 MG CAPSULE PO SCH ×2 (18:08→22:36)
[2023-04-08] MEDS: THIAMINE HCL 100 MG TABLET (FP) PO SCH (22:36)
[2023-04-08] MEDS: MELATONIN 5 MG TABLETS PO SCH (22:36)
[2023-04-09] MEDS: chlordiazePOXIDE HCL 25 MG CAPSULE PO SCH ×4 (05:55→22:39)
[2023-04-09] MEDS: PRENATAL VITAMINS W/ FOLIC ACID TABLET (FP) PO SCH (10:10)
[2023-04-09] MEDS: METHOCARBAMOL 500 MG TABLET PO PRN ×2 (10:10→23:00)
[2023-04-09 12:26] LABS: CHLORIDE 105 mmol/L (98-107); POTASSIUM 3.8 mmol/L (3.5-5.1); SODIUM 143 mmol/L (136-145)
[2023-04-09 12:32] LABS: HEMATOCRIT 43.8 % (35.4-49); MCH 29.5 pg (25.7-33.7); MCHC 34.2 g/dl (32.0-35.9); MEAN CELL VOLUME 86.1 fl (80-96); MEAN PLT VOLUME 9.2 fl (7.5-11.1); PLATELET COUNT 256 10^3/uL (134-434); RBC 5.08 M/mm3 (4.00-5.60); RDW 14.6 % (11.9-15.9); WHITE BLOOD COUNT 7.6 K/mm3 (4.0-10.0)
[2023-04-09 12:36] LABS: ALBUMIN 3.8 g/dl (3.4-5.0); ANION GAP 4 mmol/L (4-13); BLOOD UREA NITROGEN 13.8 mg/dL (7-18); CALCIUM 9.1 mg/dL (8.5-10.1); CO2 34 mmol/L (21-32); GLUCOSE,RANDOM 110 mg/dL (74-106)
[2023-04-09 12:39] LABS: CREATININE 0.8 mg/dL (0.55-1.3); SGOT/AST 13 U/L (15-37); SGPT/ALT 17 U/L (13-61)
[2023-04-09 12:41] LABS: BILIRUBIN,TOTAL 2.2 mg/dL (0.2-1)
[2023-04-09 12:42] LABS: ALK PHOS 62 U/L (45-117)
[2023-04-09] MEDS: ACETAMINOPHEN 325 MG TABLET (FP) PO PRN ×2 (18:00→23:00)
[2023-04-09] MEDS: THIAMINE HCL 100 MG TABLET (FP) PO SCH (22:39)
[2023-04-09] MEDS: MELATONIN 5 MG TABLETS PO SCH (22:39)
[2023-04-09] MEDS: hydrOXYzine PAMOATE 25 MG CAPSULE (FP) PO PRN (23:01)
[2023-04-10] MEDS: chlordiazePOXIDE HCL 25 MG CAPSULE PO SCH ×4 (05:53→22:28)
[2023-04-10] MEDS: METHOCARBAMOL 500 MG TABLET PO PRN ×2 (10:34→22:28)
[2023-04-10] MEDS: hydrOXYzine PAMOATE 25 MG CAPSULE (FP) PO PRN ×2 (10:34→16:36)
[2023-04-10] MEDS: PRENATAL VITAMINS W/ FOLIC ACID TABLET (FP) PO SCH (10:34)
[2023-04-10] MEDS: IBUPROFEN 600 MG TABLET (FP) PO PRN (11:57)
[2023-04-10] MEDS: FLUoxetine HCL 20 MG CAPSULE PO SCH (14:50)
[2023-04-10] MEDS ORDERED: risperiDONE 2 MG TABLET PO SCH (22:00)
[2023-04-10] MEDS: MELATONIN 5 MG TABLETS PO SCH (22:28)
[2023-04-10] MEDS: THIAMINE HCL 100 MG TABLET (FP) PO SCH (22:28)
[2023-04-10] MEDS: ACETAMINOPHEN 325 MG TABLET (FP) PO PRN (22:32)
[2023-04-11] MEDS ORDERED: chlordiazePOXIDE HCL 10 MG CAPSULE PO PRN
[2023-04-11] MEDS: chlordiazePOXIDE HCL 10 MG CAPSULE PO SCH ×2 (05:56→10:06)
[2023-04-11 09:24] VITALS: TEMP 97.5
[2023-04-11] MEDS: PRENATAL VITAMINS W/ FOLIC ACID TABLET (FP) PO SCH (09:24)
[2023-04-11] MEDS: FLUoxetine HCL 20 MG CAPSULE PO SCH (09:24)
[2023-04-11] MEDS: IBUPROFEN 600 MG TABLET (FP) PO PRN (09:25)
[2023-04-11 12:51] VITALS: BP 131/82; PULSE 101; RESP 18
[2023-04-11] MEDS ORDERED: ACETAMINOPHEN 325 MG TABLET (FP) PO ONE (13:06)
[2023-04-12] MEDS ORDERED: chlordiazePOXIDE HCL 10 MG CAPSULE PO SCH (05:00)
[2023-04-13] MEDS ORDERED: chlordiazePOXIDE HCL 10 MG CAPSULE PO ONE (05:00)
== END 2023-04-11 14:12 | disposition left against medical advice (07) | DRG 770 ==
LOC: YASAS 12:27 → Y6N 16:28
PROVIDERS: ADMIT Allergy & Immunology; ATTEND Surgery
PROC: HZ2ZZZZ Detoxification Services for Substance Abuse Treatment (ICD-10-PCS; principal; 2023-04-08)
DX: F13.231 Sedative, hypnotic or anxiolytic dependence with withdrawal delirium (principal); F11.20 Opioid dependence, uncomplicated; F12.20 Cannabis dependence, uncomplicated; F25.1 Schizoaffective disorder, depressive type; F19.282 Other psychoactive substance dependence with psychoactive substance-induced sleep disorder; F19.280 Other psychoactive substance dependence with psychoactive substance-induced anxiety disorder; F19.24 Other psychoactive substance dependence with psychoactive substance-induced mood disorder
CPT/HCPCS: 36415; 80053; 80307; 85027; 86780; 87635

== ENCOUNTER 2023-09-15 13:09 | Inpatient (IN) | payer OTHER ==
[2023-09-15 13:40] VITALS: BMI 25.0
[2023-09-15] MEDS ORDERED: POLYETHYLENE GLYCOL (HEALTHYLAX) 3350 17 GM PACKET PO PRN (15:03)
[2023-09-15] MEDS ORDERED: BISMUTH SUBSALICYLATE 524 MG/30 ML PO PRN (15:03)
[2023-09-15] MEDS ORDERED: ONDANSETRON *ODT* 4 MG TABLET SL PRN (15:03)
[2023-09-15] MEDS ORDERED: NALOXONE HCL 0.4 MG/ML VIAL IM PRN (15:03)
[2023-09-15] MEDS ORDERED: MAG HYDROX/AL HYDROX/SIMETH 30 ML UNIT-DOSE CUP PO PRN (15:03)
[2023-09-15] MEDS ORDERED: IBUPROFEN 400 MG TABLET (FP) PO PRN (15:03)
[2023-09-15] MEDS ORDERED: guaiFENesin 600 MG TABLET.ER (FP) PO PRN (15:03)
[2023-09-15] MEDS ORDERED: DICYCLOMINE HCL 10 MG CAPSULE PO PRN (15:03)
[2023-09-15] MEDS ORDERED: BENZONATATE 200 MG CAPSULE PO PRN (15:03)
[2023-09-15] MEDS ORDERED: hydrOXYzine PAMOATE 25 MG CAPSULE (FP) PO PRN (15:03)
[2023-09-15] MEDS ORDERED: LOPERAMIDE HCL 2 MG CAPSULE PO PRN (15:03)
[2023-09-15] MEDS ORDERED: BENZOCAINE/MENTHOL (CHLORASEPTIC ) LOZENGE MM PRN (15:03)
[2023-09-15] MEDS ORDERED: MAGNESIUM HYDROX 2400MG/30ML ORAL SUSPENSION 30 ML CUP PO PRN (15:03)
[2023-09-15] MEDS ORDERED: NALOXONE HCL (KLOXXADO) 8 MG SPRAY NS PRN (15:03)
[2023-09-15] MEDS: diazePAM 5 MG TABLET PO SCH (17:14)
[2023-09-15] MEDS: THIAMINE HCL 100 MG TABLET (FP) PO SCH (22:55)
[2023-09-15] MEDS: MELATONIN 5 MG TABLETS PO SCH (22:56)
[2023-09-15] MEDS: ACETAMINOPHEN 325 MG TABLET (FP) PO PRN (22:57)
[2023-09-16] MEDS: PRENATAL VITAMINS W/ FOLIC ACID TABLET (FP) PO SCH (10:07)
[2023-09-16 12:07] LABS: CHLORIDE 104 mmol/L (98-107); POTASSIUM 4.5 mmol/L (3.5-5.1); SODIUM 140 mmol/L (136-145)
[2023-09-16 12:16] LABS: CALCIUM 9.4 mg/dL (8.5-10.1)
[2023-09-16 12:17] LABS: ANION GAP 8 mmol/L (4-13); BLOOD UREA NITROGEN 14.9 mg/dL (7-18); CO2 28 mmol/L (21-32); GLUCOSE,RANDOM 90 mg/dL (74-106)
[2023-09-16 12:19] LABS: CREATININE 0.9 mg/dL (0.55-1.3)
[2023-09-16 12:20] LABS: HEMATOCRIT 45.8 % (35.4-49); HEMOGLOBIN 15.7 GM/dL (11.7-16.9); MCH 30.3 pg (25.7-33.7); MCHC 34.2 g/dl (32.0-35.9); MEAN CELL VOLUME 88.6 fl (80-96); MEAN PLT VOLUME 8.8 fl (7.5-11.1); PLATELET COUNT 268 10^3/uL (134-434); RBC 5.17 M/mm3 (4.00-5.60); RDW 15.1 % (11.9-15.9); SGOT/AST 15 U/L (15-37); TOT PROT 7.4 g/dl (6.4-8.2); WHITE BLOOD COUNT 8.4 K/mm3 (4.0-10.0)
[2023-09-16 12:22] LABS: BILIRUBIN,TOTAL 2.2 mg/dL (0.2-1); SGPT/ALT 28 U/L (13-61)
[2023-09-16 12:23] LABS: ALK PHOS 70 U/L (45-117)
[2023-09-16] MEDS: IBUPROFEN 600 MG TABLET (FP) PO PRN (17:06)
[2023-09-16 20:10] LABS: HIV INTERPRETATION NEGATIVE (NEGATIVE)
[2023-09-17] MEDS: diazePAM 5 MG TABLET PO SCH (05:48)
[2023-09-17] MEDS: METHOCARBAMOL 500 MG TABLET PO PRN (09:08)
[2023-09-17 09:10] VITALS: BP 110/70; PULSE 83; RESP 18; TEMP 97.5
[2023-09-17] MEDS: diazePAM 5 MG TABLET PO PRN (10:18)
[2023-09-18] MEDS ORDERED: diazePAM 5 MG TABLET PO SCH (06:00)
[2023-09-19] MEDS ORDERED: diazePAM 5 MG TABLET PO ONE (06:00)
== END 2023-09-17 11:41 | disposition left against medical advice (07) | DRG 770 ==
LOC: YASAS 13:09 → Y6N 15:22
PROVIDERS: ADMIT Allergy & Immunology; ATTEND Surgery
PROC: HZ2ZZZZ Detoxification Services for Substance Abuse Treatment (ICD-10-PCS; principal; 2023-09-15)
DX: F13.230 Sedative, hypnotic or anxiolytic dependence with withdrawal, uncomplicated (principal); F12.20 Cannabis dependence, uncomplicated; F17.210 Nicotine dependence, cigarettes, uncomplicated; F25.1 Schizoaffective disorder, depressive type; F31.9 Bipolar disorder, unspecified; F19.24 Other psychoactive substance dependence with psychoactive substance-induced mood disorder
CPT/HCPCS: 36415; 80053; 80305; 80307; 85027; 86780; 87389

== ENCOUNTER 2024-10-20 18:26 | Inpatient (IN) | payer OTHER ==
[2024-10-20 19:25] VITALS: BMI 24.7
[2024-10-20] MEDS ORDERED: MAG HYDROX/AL HYDROX/SIMETH 30 ML UNIT-DOSE CUP PO PRN (21:07)
[2024-10-20] MEDS ORDERED: IBUPROFEN 400 MG TABLET (FP) PO PRN (21:07)
[2024-10-20] MEDS ORDERED: P-EPHED 60MG/TRIPROLIDI 2.5MG TABLET PO PRN (21:07)
[2024-10-20] MEDS ORDERED: POLYETHYLENE GLYCOL (HEALTHYLAX) 3350 17 GM PACKET PO PRN (21:07)
[2024-10-20] MEDS ORDERED: BENZOCAINE/MENTHOL (CHLORASEPTIC ) LOZENGE MM PRN (21:07)
[2024-10-20] MEDS ORDERED: DICYCLOMINE HCL 10 MG CAPSULE PO PRN (21:07)
[2024-10-20] MEDS ORDERED: MAGNESIUM HYDROX 2400MG/30ML ORAL SUSPENSION 30 ML CUP PO PRN (21:07)
[2024-10-20] MEDS ORDERED: LOPERAMIDE HCL 2 MG CAPSULE PO PRN (21:07)
[2024-10-20] MEDS ORDERED: BENZONATATE 200 MG CAPSULE PO PRN (21:07)
[2024-10-20] MEDS ORDERED: ONDANSETRON *ODT* 4 MG TABLET SL PRN (21:07)
[2024-10-20] MEDS ORDERED: BISMUTH SUBSALICYLATE 524 MG/30 ML PO PRN (21:07)
[2024-10-20] MEDS ORDERED: IBUPROFEN 600 MG TABLET (FP) PO PRN (21:07)
[2024-10-20] MEDS ORDERED: NALOXONE (NARCAN) HCL 4 MG/0.1 ML SPRAY NS PRN (21:07)
[2024-10-20] MEDS ORDERED: guaiFENesin 600 MG TABLET.ER (FP) PO PRN (21:07)
[2024-10-20] MEDS ORDERED: diazePAM 5 MG TABLET ONE (22:45)
[2024-10-20] MEDS ORDERED: levETIRAcetam 500 MG TABLET (FP) PO ONE (22:46)
[2024-10-20] MEDS ORDERED: MELATONIN 5 MG TABLETS ONE (22:46)
[2024-10-20] MEDS: levETIRAcetam 500 MG TABLET (FP) PO SCH (22:53)
[2024-10-20] MEDS: MELATONIN 5 MG TABLETS PO SCH (22:53)
[2024-10-20] MEDS: diazePAM 5 MG TABLET PO SCH (22:54)
[2024-10-20] MEDS: THIAMINE 100 MG TABLET PO SCH (22:57)
[2024-10-21] MEDS: PRENATAL VITAMINS W/ FOLIC ACID TABLET (FP) PO SCH (09:16)
[2024-10-21] MEDS: methaDONE HCL 10 MG TABLET PO SCH (09:16)
[2024-10-21 11:02] LABS: HEMATOCRIT 40.7 % (40.1-51.0); HEMOGLOBIN 13.2 g/dL (13.7-17.5); MCHC 32.4 g/dl (32.3-36.5); MEAN CELL VOLUME 90.6 fl (79.0-92.2); MEAN PLT VOLUME 11.6 fl (9.4-12.4); PLATELET COUNT 145 x10^3/uL (163-337)
[2024-10-21 11:13] LABS: POTASSIUM 4.5 mmol/L (3.5-5.1)
[2024-10-21 11:42] LABS: ALBUMIN 3.4 g/dl (3.4-5.0); BLOOD UREA NITROGEN 10.8 mg/dL (7-18); CALCIUM 9.1 mg/dL (8.5-10.1)
[2024-10-21 11:45] LABS: BILIRUBIN,TOTAL 1.2 mg/dL (0.2-1); CREATININE 0.8 mg/dL (0.55-1.3)
[2024-10-21 11:46] LABS: TOT PROT 5.9 g/dl (6.4-8.2)
[2024-10-22] MEDS: diazePAM 5 MG TABLET PO SCH (05:49)
[2024-10-22] MEDS: ACETAMINOPHEN 325 MG TABLET (FP) PO PRN (05:51)
[2024-10-23] MEDS: diazePAM 5 MG TABLET PO SCH (05:14)
[2024-10-23] MEDS: diazePAM 5 MG TABLET PO PRN (10:28)
[2024-10-23] MEDS: METHOCARBAMOL 500 MG TABLET PO PRN (22:25)
[2024-10-24] MEDS: diazePAM 5 MG TABLET PO ONE (05:35)
[2024-10-24 05:53] VITALS: TEMP 97.6
[2024-10-24 08:45] VITALS: BP 102/68; PULSE 68; RESP 18
== END 2024-10-24 09:55 | disposition home or self-care (01) | DRG 773 ==
LOC: YASAS 18:26 → Y3N 22:32
PROVIDERS: ADMIT Allergy & Immunology; ATTEND Allergy & Immunology
PROC: HZ2ZZZZ Detoxification Services for Substance Abuse Treatment (ICD-10-PCS; principal; 2024-10-20)
DX: F10.230 Alcohol dependence with withdrawal, uncomplicated (principal); F11.20 Opioid dependence, uncomplicated; F17.210 Nicotine dependence, cigarettes, uncomplicated; Z86.59 Personal history of other mental and behavioral disorders
CPT/HCPCS: 36415; 80053; 85027; 86780